=== PATIENT | male | born 1970 | race African-American/Black ===

== ENCOUNTER → 2016-11-05 | Outpatient (CLI) | payer OTHER ==
[2016-11-05 11:07] LABS: ABSOLUTE EOSINOPHILS # (AUTO) 0.1 10^3/uL (0.0-0.6); ABSOLUTE LYMPHOCYTES (AUTO) 2.3 10^3/uL (0.5-4.7); ABSOLUTE MONOCYTES (AUTO) 0.4 10^3/uL (0.1-1.4); ABSOLUTE NEUT (AUTO) 2.8 10^3/uL (1.7-8.2); BASOPHILS % (AUTO) 0.5 % (0-2); EOSINOPHILS % (AUTO) 1.2 % (0-6); HEMATOCRIT 43.7 % (37.9-51.0); HEMOGLOBIN 15.2 g/dL (13.5-17.0); HGB HCT DIFFERENCE 1.9; MEAN CORPUSCULAR HEMOGLOBIN 29.9 pg (27.0-33.4); MEAN CORPUSCULAR HGB CONC 34.7 g/dL (32.0-36.0); MEAN CORPUSCULAR VOLUME 86 fl (80-97); MONOCYTES % (AUTO) 6.5 % (3-13); RED BLOOD COUNT 5.08 10^6/uL (4.35-5.55); RED CELL DISTRIBUTION WIDTH 13.9 % (11.5-14.0); SEGMENTED NEUTROPHILS % (AUTO) 50.8 % (42-78); WHITE BLOOD COUNT 5.5 10^3/uL (4.0-10.5)
[2016-11-05 11:41] LABS: ALANINE AMINOTRANSFERASE 57 U/L (21-72); ALBUMIN 4.4 g/dL (3.5-5.0); ALKALINE PHOSPHATASE 85 U/L (38-126); ANION GAP 11 (5-19); ASPARTATE AMINO TRANSFERASE 31 U/L (17-59); BILIRUBIN,DIRECT 0.2 mg/dL (0.0-0.4); BLOOD UREA NITROGEN 14 mg/dL (7-20); CALCIUM 10.2 mg/dL (8.4-10.2); CARBON DIOXIDE 27 mmol/L (22-30); CHLORIDE 99 mmol/L (98-107); CHOLESTEROL 186.92 mg/dL (0-200); CREATININE RESULT 0.85 mg/dL (0.52-1.25); Direct HDL 31 mg/dL (>40); GLUCOSE 277 mg/dL (75-110); POTASSIUM 4.6 mmol/L (3.6-5.0); SODIUM 136.9 mmol/L (137-145); TOTAL PROTEIN 7.2 g/dL (6.3-8.2); TRIGLYCERIDES 315 mg/dL (<150)
[2016-11-05 11:52] LABS: DIRECT LDL 104 mg/dL (<100)
== END ==
LOC: OD 09:51
DX: Z00.00 Encounter for general adult medical examination without abnormal findings (principal); E11.9 Type 2 diabetes mellitus without complications
CPT/HCPCS: 36415; 80053; 80061; 82043; 83036; 84443; 85025

== ENCOUNTER 2017-02-23 21:48 | Emergency (ER) | payer MEDICAID, OTHER ==
[2017-02-24] MEDS ORDERED: IPRATROPIUM/ALBUTEROL 0.5-2.5 MG/3 ML AMPUL NEB ONE (00:07)
--- NOTE | 2017-02-24 00:09 | ER Document Report ---
ED General - General Chief Complaint: Cough Stated Complaint: COUGH Time Seen by Provider: 02/23/17 23:59 Notes: Patient is a 47-year-old male presents with complaint of difficulty breathing or coughing. He is a smoker. He does have a history of bronchitis. He is a diabetic and takes metformin and insulin. No fevers. No vomiting. Symptoms have been worsening over the course of a week. No chest pain. No abdominal pain. No other complaints at this time. TRAVEL OUTSIDE OF THE [place] IN LAST 30 DAYS: No - Related Data Allergies/Adverse Reactions: No Known Allergies Allergy (Verified 08/09/16 11:12) Past Medical History - Social History Smoking Status: Current Every Day Smoker Frequency of alcohol use: None Drug Abuse: None Family History: CAD, CVA, DM, Hyperlipidemia, Hypertension Patient has suicidal ideation: No Patient has homicidal ideation: No - Past Medical History Cardiac Medical History: Reports: Hx Hypertension Pulmonary Medical History: Reports: Hx Bronchitis Neurological Medical History: Reports: Hx Migraine Endocrine Medical History: Reports: Hx Diabetes Mellitus Type 2 Renal/ Medical History: Denies: Hx Peritoneal Dialysis Past Surgical History: Reports: Hx Orthopedic Surgery - 27 screws/plate in Rgt FA; Rgt Knee; Bone graft - Immunizations Hx Diphtheria, Pertussis, Tetanus Vaccination: Yes Review of Systems - Review of Systems Notes: My Normal Review Basic REVIEW OF SYSTEMS: CONSTITUTIONAL : Denies fever, chills, or sweats. Denies recent illness. EENT: Denies eye, ear, throat, or mouth pain or symptoms. Denies nasal or sinus congestion. CARDIOVASCULAR: Denies chest pain. RESPIRATORY: Recurrent cough. Wheezing GASTROINTESTINAL: Denies abdominal pain. Denies nausea, vomiting, or diarrhea. Denies constipation. Last BM: MUSCULOSKELETAL: Denies neck or back pain or joint pain or swelling. SKIN: Denies rash or skin lesions. NEUROLOGICAL: Denies altered mental status or loss of consciousness. Denies headache. Denies weakness or paralysis or loss of use of either side. Denies problems with gait or speech. Denies sensory or motor loss. ALL OTHER SYSTEMS REVIEWED AND NEGATIVE. Physical Exam - Vital signs Vitals: Temp Pulse Resp BP Pulse Ox 98.6 F 94 16 150/88 H 91 L 02/23/17 22:24 02/23/17 22:24 02/23/17 22:24 02/23/17 22:24 02/23/17 22:24 - Notes Notes: General Appearance: Well nourished, alert, cooperative, no acute distress, no obvious discomfort. Vitals: reviewed, See vital signs table. Head: no swelling or tenderness to the head Eyes: PERRL, EOMI, Conjuctiva clear Mouth: No decreasd moisture Throat: No tonsillar inflammation, No airway obstruction, No lymphadenopathy Neck: Supple, no neck tenderness, No thyromegaly Lungs: Wheezing. Some rhonchi. Fair air exchange Heart: Normal rate, Regular rythm, No murmur, no rub Abdomen: Normal BS, soft, No rigidity, No abdominal tenderness, No guarding, no rebound, no abdominal masses, no organomegaly Extremities: strength 5/5 in all extremities, good pulses in all extremities, no swelling or tenderness in the extremities, no edema. Skin: warm, dry, appropriate color, no rash Neuro: speech clear, oriented x 3, normal affect, responds appropriately to questions. Course - Re-evaluation Re-evalutation: 02/24/17 03:11 Nurse went did an Accu-Chek and the patient's blood sugar actually went up despite receiving 12 units of insulin. The nurse saw that the patient had been drinking natalia alla. The nose was nondiet. Patient is demanding another natalia alla but we are refusing to give it to him because obviously has free sugar in his blood sugars continue to increase. Patient now says that he forgot to take his Lantus last night. We will give him his 24 units of Lantus that he did not take last night. I will give him another 20 units of regular insulin. - Vital Signs Vital signs: Temp Pulse Resp BP Pulse Ox 97.8 F 88 20 151/84 H 98 02/24/17 05:30 02/24/17 05:30 02/24/17 05:30 02/24/17 05:30 02/24/17 05:30 - Laboratory Result Diagrams: 02/24/17 02:25 02/24/17 02:25 Laboratory results interpreted by me: 02/24/17 02/24/17 02/24/17 00:16 02:25 02:25 Seg Neutrophils % 40.3 L Lymphocytes % 48.5 H Sodium 135.0 L Glucose 425 H* POC Glucose 374 H 02/24/17 02/24/17 03:08 05:19 Seg Neutrophils % Lymphocytes % Sodium Glucose POC Glucose 417 H* 343 H - Transfer of Care Notes: 02/24/17 06:24 Patient is now feeling much improved. I talked to the length about smoking and also about control his blood sugars. His blood sugars now trending in the correct direction. Patient is understanding of this. He says he can control his blood sugar well at home with his insulin. 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 He does agree to try to quit back with smoking. I will not place him on prednisone at this time due to his poorly controlled blood sugars. he still has some rhonchorous breath sounds but his lung parrish are much improved as compared to when he first arrived. He has no tachypnea. He has no increased work of breathing. He did ambulate with the pulse ox on. His oxygenation remained 98% on room air and he says he feels well and wants to go home. I encouraged him return to the ER immediately if he has any worsening of his symptoms or feels unwell. Patient will be discharged home with albuterol inhaler. Patient agrees with plan and will be discharged home. Dictation of this chart was performed using voice recognition software; therefore, there may be some unintended grammatical errors. Discharge - Discharge Clinical Impression: Bronchitis Condition: Good Disposition: HOME, SELF-CARE Additional Instructions: BRONCHITIS: You have acute bronchitis. This disease is an infection or inflammation of the air passageways in your lungs. Symptoms usually include cough, low grade fever, shortness of breath, and wheezing. The cough usually persists for a couple of weeks. Most cases of bronchitis get better without antibiotics. We prescribe antibiotics when we believe bacteria are damaging your airways, or if there's high risk the bronchitis will worsen into pneumonia. Increase your fluid intake. A cool mist humidifier may make your lungs more comfortable. An expectorant (cough medicine that loosens phlegm) can help. If you smoke, STOP!!! Recovery from bronchitis can be somewhat slow, but you should see improvement within a day or two. Repeated episodes of bronchitis may result in lung damage -- for example, chronic bronchitis, recurrent pneumonias, or emphysema. Call the doctor if you develop increasing fever, shortness of breath, chest pain, bloody sputum, or otherwise worsen. If you have not improved at all after several days, contact the physician. BRONCHITIS WITH BRONCHOSPASM (WHEEZING): You have bronchitis with bronchospasm (wheezing). Sometimes people develop wheezing with a chest cold. This occurs either because of an underlying tendency toward asthma or because the virus itself irritates the bronchial tubes. This irritation causes cough, shortness of breath, and wheezing. Emergency treatment of bronchospasm may include adrenaline shots or bronchodilator aerosol. You may feel lightheaded and have a rapid pulse for an hour or two. Rest and get plenty of fluids. At home, we'll treat you with a bronchodilator inhaler. Corticosteroids may be required for some patients. Until you recover, avoid chemical fumes, dusts, pollens, and exercising in very cold or dry air. If you smoke, stop now! Most cases of bronchitis get better without antibiotics. We prescribe antibiotics when we believe bacteria are damaging your airways, or if there's high risk the bronchitis will worsen into pneumonia. Increase your fluid intake. A cool mist humidifier may make your lungs more comfortable. An expectorant (cough medicine that loosens phlegm) can help. Repeated episodes of bronchitis and bronchospasm may result in lung damage -- for example, chronic bronchitis, recurrent pneumonias, or emphysema. If you develop a fever, increased wheezing, chest pain, or severe shortness of breath, you should contact the doctor immediately. STEROID MEDICATION: You have been given an injection of or oral medicine of the cortisone/ steroid class. This medication is used to control inflammation or allergy. Jn t is usually only given for a short period of time, until the acute process subsides. There are usually no side effects from short-term use of cortisone-like medications. Some persons feel an increased sense of well-being and are not sleepy at bedtime. Long-term use of cortisone medications is best avoided, unless required for a severe condition. If your condition does not remit, or relapses after the course of corticosteroid medication, you should consult your physician. ANTIBIOTIC THERAPY: You have been given an antibiotic prescription. It's important that you take all the medication, unless instructed otherwise by your physician. Failure to complete the entire course can result in relapse of your condition. Common side effects of antibiotics include nausea, intestinal cramping, or diarrhea. Women may develop vaginal yeast infections, and babies can get yeast (thrush) in the mouth following the use of antibiotics. Contact your physician if you develop significant side effects from this medication. Allergy to this antibiotic can result in hives, wheezing, faintness, or itching. If symptoms of allergy occur, stop the medication and call your doctor. AZITHROMYCIN: Azithromycin (Zithromax) is a broad spectrum antibiotic in the same class as erythromycin. It can treat a variety of bacterial infections, but is most frequently used for respiratory infections. Azithromycin is extremely long-lasting. It accumulates in body tissues and continues to kill bacteria for many days. In order to improve absorption, Azithromycin should be taken at least one hour before or two hours after a meal. It does not have the same strong tendency to upset the stomach as erythromycin and is usually very well tolerated. Patients who have had a rash or other true allergic reactions to erythromycin should not take this medication. Call if you develop gastrointestinal distress, severe diarrhea, rash, hives, itching, or shortness of breath. SMOKING: If you smoke, you should stop smoking. The tar and chemicals in cigarette smoke are harmful. Smoking has been shown to cause: emphysema chronic bronchitis lung cancer mouth and throat cancer stomach and pancreas cancer premature aging defects In addition, smoking increases ear and lung infections in children of smokers. FOLLOW-UP CARE: If you have been referred to a physician for follow-up care, call the physician s office for an appointment as you were instructed or within the next two days. If you experience worsening or a significant change in your symptoms, notify the physician immediately or return to the Emergency Department at any time for re-evaluation. Please return to [facility] ER imemdiately if you have worsening difficulty breathing, fevers, or feel that you are worsening in anyway. please use the inhaler as 2 puffs every 4 hours as needed for coughing or wheezing. Prescriptions: Azithromycin 250 mg PO DAILY #4 tablet
[2017-02-24] MEDS ORDERED: INSULIN REG, HUMAN 100 UNIT/ML 3 ML VIAL (PYX) SUBCUT ONE ×2 (00:19→03:10)
[2017-02-24] MEDS ORDERED: ALBUTEROL SULFATE 0.083% NEB 2.5 MG/3 ML AMPUL NEB ONE (00:53)
--- NOTE | 2017-02-24 01:03 | RADIOLOGY REPORT (SQ) ---
EXAM DESCRIPTION: CHEST PA/LAT COMPLETED DATE/TIME: 02/24/2017 12:51 am REASON FOR STUDY: cough COMPARISON: 08.09.14 EXAM PARAMETERS: NUMBER OF VIEWS: two views TECHNIQUE: Digital Frontal and Lateral radiographic views of the chest acquired. RADIATION DOSE: NA LIMITATIONS: none FINDINGS: LUNGS AND PLEURA: No opacities, masses or pneumothorax. No pleural effusion. Pulmonary va scular congestion. Moderate lung volumes. MEDIASTINUM AND HILAR STRUCTURES: No masses or contour abnormalities. HEART AND VASCULAR STRUCTURES: Heart normal size. No evidence for failure. BONES: No acute findings. HARDWARE: None in the chest. OTHER: No other significant finding. IMPRESSION: Pulmonary vascular congestion. TECHNICAL DOCUMENTATION: JOB ID: [id number] [employer]- All Rights Reserved
[2017-02-24] MEDS: MAGNESIUM SULFATE/D5W 100 ML IV SCH ×2 (01:13→02:20)
[2017-02-24] MEDS ORDERED: METHYLPREDNISOLONE INJ 125 MG/2 ML SDV IV ONE (01:50)
[2017-02-24 02:47] LABS: ABSOLUTE EOSINOPHILS # (AUTO) 0.2 10^3/uL (0.0-0.6); ABSOLUTE LYMPHOCYTES (AUTO) 3.7 10^3/uL (0.5-4.7); ABSOLUTE MONOCYTES (AUTO) 0.6 10^3/uL (0.1-1.4); BASOPHILS % (AUTO) 0.4 % (0-2); EOSINOPHILS % (AUTO) 2.5 % (0-6); HEMATOCRIT 40.4 % (37.9-51.0); HEMOGLOBIN 13.5 g/dL (13.5-17.0); HGB HCT DIFFERENCE 0.1; LYMPHOCYTES % (AUTO) 48.5 % (13-45); MEAN CORPUSCULAR HEMOGLOBIN 29.6 pg (27.0-33.4); MEAN CORPUSCULAR HGB CONC 33.6 g/dL (32.0-36.0); MEAN CORPUSCULAR VOLUME 88 fl (80-97); MONOCYTES % (AUTO) 8.3 % (3-13); RED BLOOD COUNT 4.57 10^6/uL (4.35-5.55); RED CELL DISTRIBUTION WIDTH 13.7 % (11.5-14.0); SEGMENTED NEUTROPHILS % (AUTO) 40.3 % (42-78); WHITE BLOOD COUNT 7.6 10^3/uL (4.0-10.5)
[2017-02-24 03:01] LABS: ANION GAP 10 (5-19); BLOOD UREA NITROGEN 12 mg/dL (7-20); CALCIUM 8.8 mg/dL (8.4-10.2); CARBON DIOXIDE 25 mmol/L (22-30); CHLORIDE 100 mmol/L (98-107); CREATININE RESULT 0.92 mg/dL (0.52-1.25); POTASSIUM 3.8 mmol/L (3.6-5.0)
[2017-02-24] MEDS ORDERED: INSULIN GLARGINE,HUM.REC.ANLOG 1,000 UNIT/10 ML UNIT SUBCUT ONE (03:11)
[2017-02-24 03:14] LABS: GLUCOSE 425 mg/dL (75-110)
[2017-02-24] MEDS ORDERED: ALBUTEROL SULFATE HFA (90 MCG/PUFF) 8 GM MDI (1 MDI/ER DISP) IH ONE (05:29)
[2017-02-24] MEDS ORDERED: AZITHROMYCIN 250 MG TABLET PO ONE (05:29)
[2017-02-24 05:53] VITALS: BP 151/84
== END 2017-02-24 05:51 | disposition home or self-care (01) ==
LOC: ER 21:48
DX: J40 Bronchitis, not specified as acute or chronic (principal); R05 Cough; R06.2 Wheezing; I10 Essential (primary) hypertension; F17.200 Nicotine dependence, unspecified, uncomplicated; E11.9 Type 2 diabetes mellitus without complications; T38.3X6A Underdosing of insulin and oral hypoglycemic [antidiabetic] drugs, initial encounter; Z91.138 Patient's unintentional underdosing of medication regimen for other reason; Z91.14 Patient's other noncompliance with medication regimen; Z79.84 Long term (current) use of oral hypoglycemic drugs; Z79.4 Long term (current) use of insulin
CPT/HCPCS: 94640 ×2; 99283; 96375; 96365; 96366; 36415; 82962; 85025; 80048; 71020; J1815 ×2; J2930; J3475; J3490; J7620

== ENCOUNTER 2017-02-25 09:39 | Emergency (ER) | payer MEDICAID ==
--- NOTE | 2017-02-25 09:49 | ER Document Report ---
ED Medical Screen (RME) - General Stated Complaint: POSSIBLE STROKE Time Seen by Provider: 02/25/17 09:40 Mode of Arrival: Medic Information source: Patient, H Records Notes: 47-year-old diabetic male who was seen here 2 days prior for cough and hyperglycemia noncompliance presents by EMS with left-sided weakness I have greeted and performed a rapid initial assessment of this patient. A comprehensive ED assessment and evaluation of the patient, analysis of test results and completion of the medical decision making process will be conducted by additional ED providers. PHYSICAL EXAMINATION: GENERAL: Well-appearing, well-nourished and in no acute distress. HEAD: Atraumatic, normocephalic. EYES: Pupils equal round extraocular movements intact, conjunctiva are normal. SKIN: Warm, Dry, normal turgor, no rashes or lesions noted. TRAVEL OUTSIDE OF THE [place] IN LAST 30 DAYS: No - Related Data Allergies/Adverse Reactions: No Known Allergies Allergy (Verified 08/09/16 11:12) Past Medical History - Past Medical History Cardiac Medical History: Reports: Hx Hypertension Pulmonary Medical History: Reports: Hx Bronchitis Neurological Medical History: Reports: Hx Migraine Endocrine Medical History: Reports: Hx Diabetes Mellitus Type 2 Renal/ Medical History: Denies: Hx Peritoneal Dialysis Past Surgical History: Reports: Hx Orthopedic Surgery - 27 screws/plate in Rgt FA; Rgt Knee; Bone graft - Immunizations Hx Diphtheria, Pertussis, Tetanus Vaccination: Yes
--- NOTE | 2017-02-25 09:58 | ER Document Report ---
ED General - General Stated Complaint: POSSIBLE STROKE Time Seen by Provider: 02/25/17 09:40 Mode of Arrival: Medic Information source: Patient TRAVEL OUTSIDE OF THE [place] IN LAST 30 DAYS: No - HPI Notes: 47-year-old diabetic male who was seen here 2 days prior for cough and hyperglycemia noncompliance presents by EMS with left-sided weakness Left arm and leg onset at 715 this morning with associated numbness from the face to arm and leg. Patient is insulin-dependent. Patient reports no headache. The patient had a blood sugar in route by EMS of 317. Patient has had no recent surgeries. No head trauma. No history of bleeding ulcers or other sources of bleeding. The patient had normal platelet count and normal BUN/creatinine on lab work drawn 2 days ago when he came in for hyperglycemia. - Related Data Allergies/Adverse Reactions: No Known Allergies Allergy (Verified 08/09/16 11:12) Past Medical History - General Information source: Patient, [facility] Records - Social History Smoking Status: Current Every Day Smoker Frequency of alcohol use: None Drug Abuse: None Lives with: Family Family History: CAD, CVA, DM, Hyperlipidemia, Hypertension - Past Medical History Cardiac Medical History: Reports: Hx Hypertension Pulmonary Medical History: Reports: Hx Bronchitis Neurological Medical History: Reports: Hx Migraine Endocrine Medical History: Reports: Hx Diabetes Mellitus Type 2 Renal/ Medical History: Denies: Hx Peritoneal Dialysis Past Surgical History: Reports: Hx Orthopedic Surgery - 27 screws/plate in Rgt FA; Rgt Knee; Bone graft - Immunizations Hx Diphtheria, Pertussis, Tetanus Vaccination: Yes Review of Systems - Review of Systems Notes: REVIEW OF SYSTEMS: CONSTITUTIONAL : Denies fever, chills, or sweats. Denies recent illness. EENT: Denies eye, ear, throat, or mouth pain or symptoms. Denies nasal or sinus congestion or discharge. Denies throat, tongue, or mouth swelling or difficulty swallowing. CARDIOVASCULAR: Denies chest pain. Denies palpitations or racing or irregular heart beat. Denies ankle edema. RESPIRATORY: Patient reports resolving cough and congestion. Denies shortness of breath, difficulty breathing, or wheezing. GASTROINTESTINAL: Denies abdominal pain or distention. Denies nausea, vomiting , or diarrhea. Denies blood in vomitus, stools, or per rectum. Denies black, tarry stools. Denies constipation. GENITOURINARY: Denies difficulty urinating, painful urination, burning, frequency, blood in urine, or discharge. MUSCULOSKELETAL: Denies back or neck pain or stiffness. Denies joint pain or swelling. SKIN: Denies rash, lesions or sores. HEMATOLOGIC : Denies easy bruising or bleeding. LYMPHATIC: Denies swollen, enlarged glands. NEUROLOGICAL: Denies confusion or altered mental status. Denies passing out or loss of consciousness. Denies dizziness or lightheadedness. Denies headache. Denies seizures. Patient reports being unable to walk since 715 this morning with left-sided weakness and numbness. No aphasia. PSYCHIATRIC: Denies anxiety or stress. Denies depression, suicidal ideation, or homicidal ideation. ALL OTHER SYSTEMS REVIEWED AND NEGATIVE. Dictation was performed using [employer] voice recognition software Physical Exam - Notes Notes: PHYSICAL EXAMINATION: GENERAL: Well-appearing, well-nourished and in no acute distress. HEAD: Atraumatic, normocephalic. EYES: Pupils equal round and reactive to light, extraocular movements intact, sclera anicteric, conjunctiva are normal. ENT: Nares patent, oropharynx clear without exudates. Moist mucous membranes. NECK: Normal range of motion, supple without lymphadenopathy. No obvious carotid bruits. LUNGS: Breath sounds clear to auscultation bilaterally and equal. No rales or rhonchi. Scant expiratory wheeze noted. No retraction. HEART: Regular rate and rhythm without murmurs ABDOMEN: Soft, nontender, nondistended abdomen. No guarding, no rebound. No masses appreciated. Musculoskeletal: Normal range of motion, no pitting or edema. No cyanosis. NEUROLOGICAL: No facial paresis, but patient does have a subjective numbness to the face as well as to the left arm and left leg. Patient has motor strength 4/ 5 left upper extremity is able to hold it up against gravity but cannot consistently keep it up against gravity. He has diminished hand engineering professor and finger abduction on the left. Patient is flaccid to the left lower extremity with a very mild hyperreflexia noted. Normal reflexes noted otherwise. Patient is unable to pull the leg up against gravity or move his toes on the left at all. Patient is otherwise alert and oriented 3 with normal speech. No apraxia. No ataxia with the right upper extremity. NIH stroke scale of 9 noted. PSYCH: Normal mood, normal affect. SKIN: Warm, Dry, normal turgor, no rashes or lesions noted. Course - Re-evaluation Re-evalutation: 02/25/17 10:57 Discussion was undertaken with radiology and CT scan was interpreted as negative. Patient was within the 4.5 hour window for giving thrombolytic therapy based upon onset of symptoms and based upon acuity. Blood pressure 148/79. There were no contraindications noted to thrombolytic therapy. Discussion was immediately undertaken with [facility] Dr. Krishna who agreed that the patient was a thrombolytic candidate based upon symptoms, acuity , and timeframe. Dr. Krishna accepted the patient in transfer. [facility] was dispatched for aeromedical transfer. Discussion was undertaken at length with the patient and his related to the risks alternatives and benefits of thrombolytic therapy including a 6% risk of intracranial hemorrhage. They agreed to proceed with thrombolytic therapy and a consent form was signed by the patient's at the bedside of the patient. Alteplase was given IV per protocol. Vital signs remained stable thereafter. Order for CTA of the head and neck was made, but the helicopter arrived prior to CTA being performed. CTA will need to be performed as soon as the patient arrives at [facility]. DuoNeb given for mild wheezing. Patient has a history of inhaler use and COPD. 02/25/17 11:01 - Laboratory Result Diagrams: 02/25/17 10:11 02/25/17 10:11 Laboratory results interpreted by me: 02/25/17 02/25/17 10:11 10:11 WBC 14.9 H Absolute Neutrophils 10.4 H Glucose 291 H Creatine Kinase 173 H Critical Care Note - Critical Care Note Total time excluding time spent on procedures (mins): 51 Discharge - Discharge Clinical Impression: Left hemiparesis CVA (cerebral vascular accident) Qualifiers: CVA mechanism: unspecified Qualified Code(s): I63.9 - Cerebral infarction, unspecified Condition: Stable Disposition: [facility]
--- NOTE | 2017-02-25 10:14 | RADIOLOGY REPORT (SQ) ---
EXAM DESCRIPTION: CT HEAD WITHOUT COMPLETED DATE/TIME: 02/25/2017 9:49 am REASON FOR STUDY: bed 9 stroke alert COMPARISON: 03/15/2015 and 06/29/2011. TECHNIQUE: Axial images acquired through the brain without intravenous contrast. Images reviewed wi th bone, brain and subdural windows. Images stored on PACS. All CT scanners at this facility use dose modulation, iterative reconstruction, and/or weight based d osing when appropriate to reduce radiation dose to as low as reasonably achievable (ALARA). [facility]: Dose Right [facility]: CareDose [facility]: Dose Right [facility]: Teradose 4D [facility]: Smart [email or web address] RADIATION DOSE: Up-to-date CT equipment and radiation dose reduction techniques were employed. CTDIv ol: 64.6 mGy. DLP: 1163 mGy-cm. mGy. LIMITATIONS: None. FINDINGS: VENTRICLES: Normal size and contour. CEREBRUM: No masses. No hemorrhage. No midline shift. Normal jenkins/white matter differentiation. N o evidence for acute infarction. CEREBELLUM: No masses. No hemorrhage. No alteration of density. No evidence for acute infarction. EXTRAAXIAL SPACES: No fluid collections. No masses. ORBITS AND GLOBE: No intra- or extraconal masses. Normal contour of globe without masses. CALVARIUM: No fracture. There is chronic mild deformity of the right temporal bone, possibly an old fracture. PARANASAL SINUSES: No fluid or mucosal thickening. SOFT TISSUES: No mass or hematoma. OTHER: No other significant finding. IMPRESSION: NORMAL BRAIN CT WITHOUT CONTRAST. COMMENT: Pertinent positive or negative findings of the imaging study reported as a CRITICAL EXAM sarah JOHNSON at10:08 on 02/25/2017. Category of Critical Exam: Stroke protocol. TECHNICAL DOCUMENTATION: JOB ID: [id number] Quality ID # [id number]: Final reports with documentation of one or more dose reduction techniques (e.g., Au tomated exposure control, adjustment of the mA and/or kV according to patient size, use of iterative reconstruction technique) 2010 [employer]- All Rights Reserved
--- NOTE | 2017-02-25 10:16 | RADIOLOGY REPORT (SQ) ---
EXAM DESCRIPTION: CHEST SINGLE VIEW COMPLETED DATE/TIME: 02/25/2017 9:56 am REASON FOR STUDY: bed 9 stroke alert COMPARISON: 02/24/2017. EXAM PARAMETERS: NUMBER OF VIEWS: One view. TECHNIQUE: Single frontal radiographic view of the chest acquired. RADIATION DOSE: NA LIMITATIONS: None. FINDINGS: LUNGS AND PLEURA: No opacities, masses or pneumothorax. No pleural effusion. MEDIASTINUM AND HILAR STRUCTURES: No masses. Contour normal. HEART AND VASCULAR STRUCTURES: Heart normal in size. Normal vasculature. BONES: No acute findings. HARDWARE: None in the chest. OTHER: No other significant finding. IMPRESSION: NO ACUTE RADIOGRAPHIC FINDING IN THE CHEST. TECHNICAL DOCUMENTATION: JOB ID: [id number]
[2017-02-25 10:21] LABS: ABSOLUTE EOSINOPHILS # (AUTO) 0.1 10^3/uL (0.0-0.6); ABSOLUTE LYMPHOCYTES (AUTO) 3.7 10^3/uL (0.5-4.7); ABSOLUTE MONOCYTES (AUTO) 0.8 10^3/uL (0.1-1.4); ABSOLUTE NEUT (AUTO) 10.4 10^3/uL (1.7-8.2); BASOPHILS % (AUTO) 0.2 % (0-2); EOSINOPHILS % (AUTO) 0.6 % (0-6); HEMATOCRIT 42.4 % (37.9-51.0); HGB HCT DIFFERENCE -0.4; LYMPHOCYTES % (AUTO) 24.5 % (13-45); MEAN CORPUSCULAR HEMOGLOBIN 29.1 pg (27.0-33.4); MEAN CORPUSCULAR HGB CONC 33.1 g/dL (32.0-36.0); MEAN CORPUSCULAR VOLUME 88 fl (80-97); MONOCYTES % (AUTO) 5.1 % (3-13); RED BLOOD COUNT 4.82 10^6/uL (4.35-5.55); RED CELL DISTRIBUTION WIDTH 13.8 % (11.5-14.0); SEGMENTED NEUTROPHILS % (AUTO) 69.6 % (42-78); WHITE BLOOD COUNT 14.9 10^3/uL (4.0-10.5)
[2017-02-25] MEDS ORDERED: ALTEPLASE INJ 100 MG VIAL ONE (10:23)
[2017-02-25 10:29] LABS: PROTHROMBIN TIME 11.8 SEC (11.4-15.4)
[2017-02-25 10:30] LABS: PARTIAL THROMBOPLASTIN TIME 23.8 SEC (23.5-35.8)
[2017-02-25] MEDS ORDERED: IPRATROPIUM/ALBUTEROL 0.5-2.5 MG/3 ML AMPUL NEB ONE ×2 (10:42→10:46)
[2017-02-25 10:43] LABS: ALANINE AMINOTRANSFERASE 34 U/L (21-72); ALBUMIN 4.1 g/dL (3.5-5.0); ALKALINE PHOSPHATASE 98 U/L (38-126); ANION GAP 13 (5-19); ASPARTATE AMINO TRANSFERASE 19 U/L (17-59); BILIRUBIN,DIRECT 0.3 mg/dL (0.0-0.4); BILIRUBIN,TOTAL 0.6 mg/dL (0.2-1.3); BLOOD UREA NITROGEN 15 mg/dL (7-20); CALCIUM 9.9 mg/dL (8.4-10.2); CARBON DIOXIDE 24 mmol/L (22-30); CHLORIDE 100 mmol/L (98-107); CREATINE KINASE 173 U/L (55-170); CREATININE RESULT 0.99 mg/dL (0.52-1.25); GLUCOSE 291 mg/dL (75-110); POTASSIUM 4.1 mmol/L (3.6-5.0); SODIUM 137.1 mmol/L (137-145); TOTAL PROTEIN 7.1 g/dL (6.3-8.2)
[2017-02-25 10:54] LABS: CREATINE KINASE MB 0.65 ng/mL (<4.55)
[2017-02-25 10:55] LABS: TROPONIN I < 0.012 ng/mL
[2017-02-25 11:21] VITALS: BP 148/84
--- NOTE | 2017-02-25 13:06 | EKG REPORT ---
SEVERITY:- NORMAL ECG - SINUS RHYTHM ST ELEV, PROBABLE NORMAL EARLY REPOL PATTERN : Confirmed by: Kris Jeff MD 25-Feb-2017 13:05:48
== END 2017-02-25 11:59 | disposition short-term general hospital (02) ==
LOC: ER 09:39
DX: I69.354 Hemiplegia and hemiparesis following cerebral infarction affecting left non-dominant side (principal); I63.9 Cerebral infarction, unspecified; R05 Cough; R73.9 Hyperglycemia, unspecified; R53.1 Weakness; F17.200 Nicotine dependence, unspecified, uncomplicated
CPT/HCPCS: 36415; 70450; 71010; 80053; 82550; 82553; 84484; 85025; 85610; 85730; 93005; 93010; 99291

== ENCOUNTER 2017-07-18 08:14 | Emergency (ER) | payer MEDICAID ==
[2017-07-18] MEDS ORDERED: IPRATROPIUM/ALBUTEROL 0.5-2.5 MG/3 ML AMPUL NEB ONE (08:50)
[2017-07-18] MEDS ORDERED: GUAIFENESIN/D-METHORPHAN (200-20 MG) SYRUP 10 ML PO ONE (08:51)
--- NOTE | 2017-07-18 08:51 | ER Document Report ---
ED Respiratory Problem - General Chief Complaint: Shortness Of Breath Stated Complaint: SHORTNESS OF BREATH Time Seen by Provider: 07/18/17 08:30 Mode of Arrival: Ambulatory Information source: Patient Notes: Patient is a 47-year-old asthmatic who presents to the ER today for 1 week of cough, shortness of breath, wheezing, "Hot flashes" chills. Patient admits that his cough is productive of thick yellow sputum. He has not tried anything [id number]. He denies chest pain. TRAVEL OUTSIDE OF THE [place] IN LAST 30 DAYS: No - Related Data Allergies/Adverse Reactions: No Known Allergies Allergy (Verified 07/18/17 08:16) Past Medical History - General Information source: Patient - Social History Smoking Status: Former Smoker Family History: CAD, CVA, DM, Hyperlipidemia, Hypertension - Past Medical History Cardiac Medical History: Reports: Hx Hypertension Pulmonary Medical History: Reports: Hx Bronchitis Neurological Medical History: Reports: Hx Migraine Endocrine Medical History: Reports: Hx Diabetes Mellitus Type 2 Renal/ Medical History: Denies: Hx Peritoneal Dialysis Past Surgical History: Reports: Hx Orthopedic Surgery - 27 screws/plate in Rgt FA; Rgt Knee; Bone graft - Immunizations Hx Diphtheria, Pertussis, Tetanus Vaccination: Yes Review of Systems - Review of Systems Constitutional: See HPI EENT: See HPI Cardiovascular: No symptoms reported Respiratory: See HPI Gastrointestinal: No symptoms reported Genitourinary: No symptoms reported Male Genitourinary: No symptoms reported Musculoskeletal: No symptoms reported Skin: No symptoms reported Hematologic/Lymphatic: No symptoms reported Neurological/Psychological: No symptoms reported Physical Exam - Vital signs Vitals: Temp Pulse Resp BP Pulse Ox 97.8 F 91 16 161/89 H 95 07/18/17 08:18 07/18/17 08:18 07/18/17 08:18 07/18/17 08:18 07/18/17 08:18 - Notes Notes: PHYSICAL EXAMINATION: GENERAL: Mildly ill-appearing, but in no acute distress. HEAD: Atraumatic, normocephalic. EYES: Pupils equal round and reactive to light, extraocular movements intact, sclera anicteric, conjunctiva are normal. ENT: ear canals without erythema or foreign body, TMs pearly ignacio with good bony landmarks, nares with mucoid discharge, oropharynx clear without exudates. Moist mucous membranes. airway patent NECK: Normal range of motion, supple without lymphadenopathy LUNGS: cough, otherwise,CTAB and equal. No wheezes rales or rhonchi. HEART: Regular rate and rhythm without murmurs ABDOMEN: Soft, no tenderness. No guarding, no rebound BACK: no vertebral tenderness, normal ROM GI/: no CVA tenderness EXTREMITIES: Normal range of motion, no pitting edema. No cyanosis. NEUROLOGICAL: Cranial nerves grossly intact. Normal sensory/motor exams. PSYCH: Normal mood, normal affect. SKIN: Warm, Dry, normal turgor, no rashes or lesions noted Course - Re-evaluation Re-evalutation: 07/18/17 11:45 chest x-ray reports a right lower lobe pneumonia. Patient placed on antibiotic , cough medication and given refills on his albuterol. - Vital Signs Vital signs: Temp Pulse Resp BP Pulse Ox 98.7 F 96 20 140/98 H 96 07/18/17 10:03 07/18/17 10:03 07/18/17 10:03 07/18/17 10:03 07/18/17 10:03 - Laboratory Laboratory results interpreted by me: 07/18/17 09:47 POC Glucose 123 H Discharge - Discharge Clinical Impression: Pneumonia Qualifiers: Pneumonia type: due to unspecified organism Laterality: right Lung location: lower lobe of lung Qualified Code(s): J18.1 - Lobar pneumonia, unspecified organism Condition: Stable Disposition: HOME, SELF-CARE Instructions: Pneumonia ([facility]) Additional Instructions: Return immediately for any new or worsening symptoms. Follow up with primary care provider, call tomorrow to make followup appointment. Prescriptions: Hydrocodone Bit/Homatropine [Hycodan Syrup 5-1.5 mg/5 ml Ud Cup] 5 ml PO Q4HP PRN #120 ml PRN Reason: Albuterol Sulfate [Albuterol Sulfate 2.5mg/3 mL] 2.5 mg IH Q4 PRN #75 ml PRN Reason: Amox Tr/Potassium Clavulanate [Augmentin 875-125 Tablet] 1 tab PO BID 10 Days tablet Forms: Return to Work
--- NOTE | 2017-07-18 09:32 | RADIOLOGY REPORT (SQ) ---
EXAM DESCRIPTION: CHEST PA/LAT COMPLETED DATE/TIME: 07/18/2017 9:10 am REASON FOR STUDY: sob COMPARISON: February 2017 EXAM PARAMETERS: NUMBER OF VIEWS: two views TECHNIQUE: Digital Frontal and Lateral radiographic views of the chest acquired. RADIATION DOSE: NA LIMITATIONS: none FINDINGS: LUNGS AND PLEURA: There is ill-defined increased density in the right lung base which coul d represent a developing infiltrate or atelectatic changes. Remaining lung parrish are clear. No ple ural effusions are identified. No pneumothorax is seen. MEDIASTINUM AND HILAR STRUCTURES: No masses or contour abnormalities. HEART AND VASCULAR STRUCTURES: Heart normal size. No evidence for failure. BONES: No acute findings. HARDWARE: None in the chest. OTHER: No other significant finding. IMPRESSION: Ill-defined increased density in the right lung base which could represent a developing infiltrate or atelectatic changes. Remaining lung parrish are clear TECHNICAL DOCUMENTATION: JOB ID: [id number] [employer]- All Rights Reserved
[2017-07-18 10:04] VITALS: BP 140/98
== END 2017-07-18 10:02 | disposition home or self-care (01) ==
LOC: ER 08:14
DX: J18.1 Lobar pneumonia, unspecified organism (principal); R06.02 Shortness of breath; R05 Cough; R06.2 Wheezing; Z87.891 Personal history of nicotine dependence
CPT/HCPCS: 94640; 99285; 82962; 87804; 71020; J3490; J7620

== ENCOUNTER 2017-07-25 17:08 | Inpatient (IN) | payer MEDICAID ==
--- NOTE | 2017-07-25 17:31 | ER Document Report ---
ED Medical Screen (RME) - General Chief Complaint: Shortness Of Breath Stated Complaint: SHORTNESS OF BREATH Time Seen by Provider: 07/25/17 17:29 Notes: The patient is a 47-year-old male who presents with increasing shortness of breath, cough, fevers and chills over the past few days. He was diagnosed with a right lower lobe pneumonia 1 week ago and has been taking his Augmentin as prescribed. He is not feeling much better and is having worsening dyspnea on exertion. PE: Crackles in RLL. Labored breathing after walking. I have greeted and performed a rapid initial assessment of this patient. A comprehensive ED assessment and evaluation of the patient, analysis of test results and completion of the medical decision making process will be conducted by additional ED providers. TRAVEL OUTSIDE OF THE [place] IN LAST 30 DAYS: No - Related Data Allergies/Adverse Reactions: No Known Allergies Allergy (Verified 07/25/17 17:12) Past Medical History - Past Medical History Cardiac Medical History: Reports: Hx Hypertension Pulmonary Medical History: Reports: Hx Bronchitis Neurological Medical History: Reports: Hx Migraine Endocrine Medical History: Reports: Hx Diabetes Mellitus Type 2 Renal/ Medical History: Denies: Hx Peritoneal Dialysis Past Surgical History: Reports: Hx Orthopedic Surgery - 27 screws/plate in Rgt FA; Rgt Knee; Bone graft - Immunizations Hx Diphtheria, Pertussis, Tetanus Vaccination: Yes Physical Exam - Vital signs Vitals: Temp Pulse Resp BP Pulse Ox 98.3 F 94 24 H 147/95 H 92 07/25/17 17:19 07/25/17 17:19 07/25/17 17:19 07/25/17 17:19 07/25/17 17:19 Course - Vital Signs Vital signs: Temp Pulse Resp BP Pulse Ox 98.3 F 94 24 H 147/95 H 92 07/25/17 17:19 07/25/17 17:19 07/25/17 17:19 07/25/17 17:19 07/25/17 17:19
--- NOTE | 2017-07-25 18:07 | RADIOLOGY REPORT (SQ) ---
EXAM DESCRIPTION: CHEST PA/LAT COMPLETED DATE/TIME: 07/25/2017 5:59 pm REASON FOR STUDY: SOB COMPARISON: 07/18/2017 EXAM PARAMETERS: NUMBER OF VIEWS: two views TECHNIQUE: Digital Frontal and Lateral radiographic views of the chest acquired. RADIATION DOSE: NA LIMITATIONS: none FINDINGS: LUNGS AND PLEURA: Patchy opacification is present in each mid and lower lung field. Possi ble pulmonary edema. MEDIASTINUM AND HILAR STRUCTURES: No masses or contour abnormalities. HEART AND VASCULAR STRUCTURES: Borderline cardiomegaly. BONES: No acute findings. HARDWARE: None in the chest. OTHER: No other significant finding. IMPRESSION: Borderline cardiomegaly with possible pulmonary edema. Multicentric pneumonia cannot be excluded. TECHNICAL DOCUMENTATION: JOB ID: [id number] [employer]- All Rights Reserved
--- NOTE | 2017-07-25 18:20 | ER Document Report ---
ED General - General Chief Complaint: Shortness Of Breath Stated Complaint: SHORTNESS OF BREATH Time Seen by Provider: 07/25/17 17:29 Mode of Arrival: Ambulatory Information source: Patient Notes: This is a 47-year-old man with a history of hypertension, diabetes, bronchitis, asthma, CVA (residual left lower extremity weakness). The patient presented on July 18 with shortness of breath and was treated for pneumonia. He presents to the emergency room with first worsening shortness of breath over the past 2 days associated with cough and chills. TRAVEL OUTSIDE OF THE [place] IN LAST 30 DAYS: No - HPI Onset: Last week Onset/Duration: Gradual Quality of pain: No pain Severity: None Pain Level: Denies Associated symptoms: Nonproductive cough, Shortness of breath. denies: Chest pain, Fever Exacerbated by: Movement Relieved by: Remaining still Similar symptoms previously: Yes Recently seen / treated by doctor: Yes - Related Data Allergies/Adverse Reactions: No Known Allergies Allergy (Verified 07/25/17 17:12) Home Medications: Current Home Medications Acyclovir [Zovirax 200 mg Capsule] 1 tab PO BID 07/25/17 [History] Albuterol Sulfate [Ventolin 0.042% Neb 1.25 mg/3 mL Ampul] 1 dose IN Q4 [History] Atorvastatin Calcium 1 tab PO DAILY 07/25/17 [History] Butalb/Acetaminophen/Caffeine [Slbrwd-Qwwswayx-Uxlt 50-300-40] 1 tab PO TID 03/04 [History] Gabapentin 1 tab PO BID 07/25/17 [History] Meloxicam 1 tab PO BID 07/25/17 [History] Metformin HCl 1 tab PO BID 07/25/17 [History] Pregabalin [Lyrica 50 mg Capsule] 1 tab PO TID 07/25/17 [History] Propranolol HCl [Inderal 20 mg Tablet] 1 tab PO TID 07/25/17 [History] Trazodone HCl 1 tab PO DAILY 07/25/17 [History] Past Medical History - General Information source: Patient - Social History Smoking Status: Current Every Day Smoker Cigarette use (# per day): Yes - Half pack per day Chew tobacco use (# tins/day): No Frequency of alcohol use: None Drug Abuse: None Lives with: Spouse/Significant other Family History: CAD, CVA, DM, Hyperlipidemia, Hypertension Patient has suicidal ideation: No Patient has homicidal ideation: No - Past Medical History Cardiac Medical History: Reports: Hx Hypertension Pulmonary Medical History: Reports: Hx Bronchitis Neurological Medical History: Reports: Hx Migraine Endocrine Medical History: Reports: Hx Diabetes Mellitus Type 2 Renal/ Medical History: Denies: Hx Peritoneal Dialysis Past Surgical History: Reports: Hx Orthopedic Surgery - 27 screws/plate in Rgt FA; Rgt Knee; Bone graft - Immunizations Hx Diphtheria, Pertussis, Tetanus Vaccination: Yes Review of Systems - Review of Systems Constitutional: denies: Chills, Fever EENT: No symptoms reported Cardiovascular: See HPI Respiratory: See HPI Gastrointestinal: No symptoms reported Genitourinary: No symptoms reported Male Genitourinary: No symptoms reported Musculoskeletal: No symptoms reported Skin: No symptoms reported Hematologic/Lymphatic: No symptoms reported Neurological/Psychological: No symptoms reported Physical Exam - Vital signs Vitals: Temp Pulse Resp BP Pulse Ox 98.3 F 94 24 H 147/95 H 92 07/25/17 17:19 07/25/17 17:19 07/25/17 17:19 07/25/17 17:19 07/25/17 17:19 Notes: Physical exam: GENERAL: 47-year-old man, alert and oriented 3, patient is in respiratory distress, on room air O2 sat 90% HEAD: Atraumatic, normocephalic. EYES: Pupils equal round and reactive to light, extraocular movements intact, sclera anicteric, conjunctiva are normal. ENT: TMs normal, nares patent, oropharynx clear without exudates. Moist mucous membranes. NECK: Normal range of motion, supple without obvious mass or JVD. LUNGS: Scattered wheezes HEART: Regular rate and rhythm without murmurs, rubs or gallops. ABDOMEN: Soft, normoactive bowel sounds. No tenderness to palpation. No guarding, no rebound. No masses appreciated. EXTREMITIES: Normal range of motion, no pitting or edema. No clubbing or cyanosis. NEUROLOGICAL: Cranial nerves II through XII grossly intact. Normal speech, moving all extremities. PSYCH: Normal mood, normal affect. SKIN: Warm, Dry, normal turgor, no rashes or lesions noted. Course - Re-evaluation Re-evalutation: 07/25/17 22:22 Note: The CT of the chest shows pleural effusions and bilateral infiltrates with a differential of heart failure versus multilobar pneumonia. We are treating the patient for both. He is receiving IV diuresis as well as IV antibiotics broad-spectrum. He is getting nebulizers. Patient has refused some of his care and threatened to leave against advice. I did speak with him and he is willing to stay in the hospital. Currently, he is supplemental oxygen is between 3 and 4 L humidified and his O2 sat is between 91 and 94%. I have expressed to him that we are very concerned about his respiratory status. - Vital Signs Vital signs: Temp Pulse Resp BP Pulse Ox 98.3 F 94 21 H 130/60 H 91 L 07/25/17 17:19 07/25/17 17:19 07/25/17 21:01 07/25/17 21:01 07/25/17 21:01 - Laboratory Result Diagrams: 07/25/17 19:21 07/25/17 19:21 Laboratory results interpreted by me: 07/25/17 07/25/17 07/25/17 19:21 19:21 19:21 RDW 14.4 H Lactic Acid Direct Bilirubin 0.5 H Creatine Kinase 177 H NT-Pro-B Natriuret Pep 2830 H TSH 07/25/17 07/25/17 19:21 19:21 RDW Lactic Acid 2.2 H Direct Bilirubin Creatine Kinase NT-Pro-B Natriuret Pep TSH 0.45 L - Diagnostic Test Radiology reviewed: Image reviewed, Reports reviewed - Chest x-ray shows bilateral infiltrates suggestive of multilobar pneumonia or pulmonary edema - EKG Interpretation by Me Rate: Normal Rhythm: NSR - EKG shows normal sinus rhythm with no acute ST-T wave change, some baseline artifact. Critical Care Note - Critical Care Note Total time excluding time spent on procedures (mins): 70 Discharge - Discharge Clinical Impression: Dyspnea, Pneumonia, Pulmonary edema Condition: Serious Disposition: ADMITTED INPATIENT Admitting Provider: Hospitalist - Dr. Chaves Unit Admitted: [facility]
[2017-07-25] MEDS ORDERED: IPRATROPIUM/ALBUTEROL 0.5-2.5 MG/3 ML AMPUL NEB ONE (18:21)
[2017-07-25] MEDS ORDERED: CEFTRIAXONE 1 GM/D5W RTU 1 GM/50 ML RTUPB IV ONE (18:21)
[2017-07-25] MEDS ORDERED: CEFEPIME 2 GM/D5W RTU 2 GM/50 ML RTUPB IV ONE (18:24)
[2017-07-25] MEDS ORDERED: AZITHROMYCIN INJ 500 MG VIAL IV ONE (18:24)
[2017-07-25] MEDS ORDERED: FUROSEMIDE INJ/PF 40 MG/4 ML SDV IV ONE (19:37)
[2017-07-25] MEDS ORDERED: FUROSEMIDE INJ/PF 40 MG/4 ML SDV ONE (19:38)
[2017-07-25 19:47] LABS: VENOUS BLOOD BASE EXCESS -1.5 mmol/L; VENOUS BLOOD PCO2 43.1 mmHg (35-63); VENOUS BLOOD PH 7.36 (7.30-7.42)
[2017-07-25 19:48] LABS: ABSOLUTE BASOPHILS # (AUTO) 0.1 10^3/uL (0.0-0.2); ABSOLUTE EOSINOPHILS # (AUTO) 0.1 10^3/uL (0.0-0.6); ABSOLUTE LYMPHOCYTES (AUTO) 2.1 10^3/uL (0.5-4.7); ABSOLUTE MONOCYTES (AUTO) 0.5 10^3/uL (0.1-1.4); ABSOLUTE NEUT (AUTO) 7.1 10^3/uL (1.7-8.2); BASOPHILS % (AUTO) 0.8 % (0-2); EOSINOPHILS % (AUTO) 0.8 % (0-6); HEMATOCRIT 40.6 % (37.9-51.0); HEMOGLOBIN 13.8 g/dL (13.5-17.0); HGB HCT DIFFERENCE 0.8; LYMPHOCYTES % (AUTO) 21.4 % (13-45); MEAN CORPUSCULAR HEMOGLOBIN 29.7 pg (27.0-33.4); MEAN CORPUSCULAR HGB CONC 34.1 g/dL (32.0-36.0); MEAN CORPUSCULAR VOLUME 87 fl (80-97); MONOCYTES % (AUTO) 5.1 % (3-13); RED BLOOD COUNT 4.65 10^6/uL (4.35-5.55); RED CELL DISTRIBUTION WIDTH 14.4 % (11.5-14.0); SEGMENTED NEUTROPHILS % (AUTO) 71.9 % (42-78); WHITE BLOOD COUNT 9.8 10^3/uL (4.0-10.5)
[2017-07-25 20:04] LABS: ALANINE AMINOTRANSFERASE 43 U/L (21-72); ALBUMIN 3.7 g/dL (3.5-5.0); ALKALINE PHOSPHATASE 74 U/L (38-126); ANION GAP 9 (5-19); ASPARTATE AMINO TRANSFERASE 23 U/L (17-59); BILIRUBIN,DIRECT 0.5 mg/dL (0.0-0.4); BILIRUBIN,TOTAL 0.7 mg/dL (0.2-1.3); BLOOD UREA NITROGEN 13 mg/dL (7-20); CALCIUM 8.8 mg/dL (8.4-10.2); CARBON DIOXIDE 26 mmol/L (22-30); CHLORIDE 106 mmol/L (98-107); CREATINE KINASE 177 U/L (55-170); CREATININE RESULT 0.99 mg/dL (0.52-1.25); GLUCOSE 98 mg/dL (75-110); POTASSIUM 4.2 mmol/L (3.6-5.0); SODIUM 140.5 mmol/L (137-145); TOTAL PROTEIN 6.8 g/dL (6.3-8.2)
[2017-07-25 20:16] LABS: CREATINE KINASE MB 0.98 ng/mL (<4.55); TROPONIN I 0.012 ng/mL
--- NOTE | 2017-07-25 20:48 | EKG REPORT ---
SEVERITY:- ABNORMAL ECG - SINUS TACHYCARDIA NONSPECIFIC INTRAVENTRICULAR CONDUCTION DELAY PROBABLE INFERIOR INFARCT, AGE INDETERMINATE NONSPECIFIC T WAVE CHANGES LAT CHEST LEADS : Confirmed by: Niko Dyer 25-Jul-2017 20:47:38
[2017-07-25] MEDS ORDERED: METHYLPREDNISOLONE INJ 125 MG/2 ML SDV ONE (20:51)
--- NOTE | 2017-07-25 21:24 | RADIOLOGY REPORT (SQ) ---
EXAM DESCRIPTION: CT CHEST WITHOUT COMPLETED DATE/TIME: 07/25/2017 9:13 pm REASON FOR STUDY: sob COMPARISON: 07/25/2017 TECHNIQUE: CT scan performed of the chest without intravenous contrast. Images reviewed with lung, soft tissue and bone windows. Reconstructed coronal and sagittal MPR images reviewed. All images st ored on PACS. All CT scanners at this facility use dose modulation, iterative reconstruction, and/or weight based d osing when appropriate to reduce radiation dose to as low as reasonably achievable (ALARA). [facility]: Dose Right [facility]: CareDose [facility]: Dose Right [facility]: Teradose 4D [facility]: [employer] RADIATION DOSE: mGy. LIMITATIONS: No technical limitations. FINDINGS: LUNGS AND PLEURA: Moderate bilateral pleural effusions right glad with the left. Diffuse patchy airspace disease throughout both lungs predominantly in the middle and lower lobes. HILAR AND MEDIASTINAL STRUCTURES: Nonspecific small nodes in the mediastinum. HEART AND VASCULAR STRUCTURES: No aneurysm. No pericardial effusion. UPPER ABDOMEN: No significant findings. Limited exam. THYROID AND OTHER SOFT TISSUES: No masses. No adenopathy. BONES: No significant finding. HARDWARE: None in the chest. OTHER: No other significant findings. IMPRESSION: Diffuse airspace disease with bilateral pleural effusions. Differential is pneumonia ve rsus pulmonary edema. Nonspecific likely reactive nodes in the mediastinum. TECHNICAL DOCUMENTATION: JOB ID: [id number] Quality ID # [id number]: Final reports with documentation of one or more dose reduction techniques (e.g., Au tomated exposure control, adjustment of the mA and/or kV according to patient size, use of iterative reconstruction technique) 2010 [employer]- All Rights Reserved
[2017-07-25] MEDS ORDERED: MAG HYDROX/AL HYDROX/SIMETH SUSP 30 ML UDCUP PO PRN (22:10)
[2017-07-25] MEDS ORDERED: ACETAMINOPHEN 325 MG TABLET PO PRN (22:10)
[2017-07-25] MEDS ORDERED: HYDRALAZINE HCL INJ/PF 20 MG/1 ML SDV IV PRN (22:15)
[2017-07-25] MEDS ORDERED: NITROGLYCERIN 5 MG (0.2 MG/HR) PATCH.TD24 TD ONE (22:30)
[2017-07-25] MEDS ORDERED: TRAZODONE HCL 50 MG TABLET PO ONE ×2 (23:00)
[2017-07-26 00:15] LABS: CREATINE KINASE MB 0.66 ng/mL (<4.55); TROPONIN I 0.019 ng/mL
[2017-07-26 01:48] LABS: ARTERIAL BLOOD BASE EXCESS 3.2 mmol/L; ARTERIAL BLOOD O2 SATURATION 94.6 % (94-98)
[2017-07-26 02:10] LABS: URINE METHADONE SCREEN NEGATIVE; URINE OPIATES LOW NEGATIVE; URINE PHENCYCLIDINE SCREEN NEGATIVE
[2017-07-26 02:18] LABS: URINE BARBITURATES SCREEN UNCONFIRMED POSITIVE
[2017-07-26] MEDS ORDERED: INFLUENZA ADLT QUAD (36MOS+) 2017-18 VAC 0.5 ML SYR IM PRN (02:48)
[2017-07-26] MEDS: HEPARIN SOD (PORCINE) 5,000 UNIT/ML 1 ML SYRINGE SUBCUT SCH ×3 (05:11→21:48)
[2017-07-26 05:44] LABS: ABSOLUTE MONOCYTES (AUTO) 0.5 10^3/uL (0.1-1.4); ABSOLUTE NEUT (AUTO) 6.9 10^3/uL (1.7-8.2); BASOPHILS % (AUTO) 0.5 % (0-2); EOSINOPHILS % (AUTO) 0.4 % (0-6); HEMATOCRIT 35.9 % (37.9-51.0); HEMOGLOBIN 12.3 g/dL (13.5-17.0); LYMPHOCYTES % (AUTO) 20.7 % (13-45); MEAN CORPUSCULAR HEMOGLOBIN 29.4 pg (27.0-33.4); MEAN CORPUSCULAR HGB CONC 34.2 g/dL (32.0-36.0); MEAN CORPUSCULAR VOLUME 86 fl (80-97); MONOCYTES % (AUTO) 5.4 % (3-13); RED BLOOD COUNT 4.18 10^6/uL (4.35-5.55); RED CELL DISTRIBUTION WIDTH 14.5 % (11.5-14.0); WHITE BLOOD COUNT 9.5 10^3/uL (4.0-10.5)
[2017-07-26 06:03] LABS: ANION GAP 6 (5-19); BLOOD UREA NITROGEN 13 mg/dL (7-20); CALCIUM 8.6 mg/dL (8.4-10.2); CARBON DIOXIDE 25 mmol/L (22-30); CHLORIDE 106 mmol/L (98-107); CREATINE KINASE 149 U/L (55-170); CREATININE RESULT 1.06 mg/dL (0.52-1.25); GLUCOSE 164 mg/dL (75-110); MAGNESIUM 1.9 mg/dL (1.6-2.3); POTASSIUM 4.2 mmol/L (3.6-5.0)
[2017-07-26] MEDS ORDERED: VANCOMYCIN HCL 1,000 MG in DEXTROSE 5%-WATER 250 ML IV ONE (06:05)
--- NOTE | 2017-07-26 06:05 | PDOC H&P ---
History of Present Illness Admission Date/PCP: 07/25/17 22:28 Patient complains of: Shortness of breath History of Present Illness: CLARENCE TAYLOR is a 47 year old male with past medical history of tobacco dependence, hypertension, migraine headache, diabetes, bronchitis, asthma and remote CVA with residual left-sided weakness. Patient presents with 3 weeks of vague shortness of breath exacerbated by exertion denies fever chills nausea vomiting or chest pain. He was treated for bronchitis with Augmentin approximately 7 days ago without significant improvement. In the emergency room is found to have pulmonary edema and bilateral pleural effusions. He receives IV Lasix and referred to the hospitalist for admission. Patient's course is challenged by multiple refusals for treatment despite lengthy attempts of education. He is unwilling to provide a medication reconciliation. Past Medical History Cardiac Medical History: Reports: Hypertension Pulmonary Medical History: Reports: Bronchitis, Pneumonia Neurological Medical History: Reports: Migraine Endocrine Medical History: Reports: Diabetes Mellitus Type 2 Past Surgical History Past Surgical History: Reports: Orthopedic Surgery - 27 screws/plate in Rgt FA; Rgt Knee; Bone graft Social History Lives with: Spouse/Significant other Smoking Status: Current Every Day Smoker Cigarettes Packs Per Day: 20 Number of Years Smokin Last Time Smoked: 07/25/2017 Frequency of Alcohol Use: Social Hx Recreational Drug Use: No Drugs: None Hx Prescription Drug Abuse: No - Advance Directive Resuscitation Status: Full Code Family History Family History: CAD, CVA, DM, Hyperlipidemia, Hypertension Parental Family History Reviewed: Yes Children Family History Reviewed: Yes Sibling(s) Family History Reviewed.: Yes Medication/Allergy Home Medications: Amox Tr/Potassium Clavulanate [Augmentin 875-125 Tablet] 1 tab PO BID 10 Days tablet 07/18/17 Acyclovir [Zovirax 200 mg Capsule] 1 tab PO BID 07/25/17 Albuterol Sulfate [Ventolin 0.042% Neb 1.25 mg/3 mL Ampul] 1 dose IN Q4 Atorvastatin Calcium 1 tab PO DAILY 07/25/17 Butalb/Acetaminophen/Caffeine [Ldqqlv-Bxnikbyt-Piwu 50-300-40] 1 tab PO TID 03/04 Gabapentin 1 tab PO BID 07/25/17 Meloxicam 1 tab PO BID 07/25/17 Metformin HCl 1 tab PO BID 07/25/17 Pregabalin [Lyrica 50 mg Capsule] 1 tab PO TID 07/25/17 Propranolol HCl [Inderal 20 mg Tablet] 1 tab PO TID 07/25/17 Trazodone HCl 1 tab PO DAILY 07/25/17 Allergies/Adverse Reactions: No Known Allergies Allergy (Verified 07/25/17 17:12) Review of Systems ROS unobtainable: Due to mental status - Patient is delirious and refuses Physical Exam Vital Signs: Temp Pulse Resp BP Pulse Ox 100.3 F 102 H 24 H 123/61 100 07/26/17 03:39 07/26/17 03:39 07/25/17 23:00 07/26/17 03:39 07/26/17 03:39 General appearance: PRESENT: disheveled, mild distress. ABSENT: cooperative Head exam: PRESENT: atraumatic, normocephalic Eye exam: PRESENT: conjunctiva pink, EOMI, PERRLA. ABSENT: scleral icterus Ear exam: PRESENT: normal external ear exam Mouth exam: PRESENT: moist, tongue midline Neck exam: PRESENT: JVD. ABSENT: carotid bruit, lymphadenopathy, thyromegaly Respiratory exam: PRESENT: accessory muscle use, crackles, decreased breath sounds, prolonged expiratory phas, rales, retraction, tachypnea. ABSENT: chest wall tenderness Cardiovascular exam: PRESENT: gallop, RRR, +S1, +S2, tachycardia. ABSENT: diastolic murmur, rubs, systolic murmur Pulses: PRESENT: normal dorsalis pedis pul Vascular exam: PRESENT: normal capillary refill GI/Abdominal exam: PRESENT: normal bowel sounds, soft. ABSENT: distended, guarding, mass, organolmegaly, rebound, tenderness Rectal exam: PRESENT: deferred Extremities exam: PRESENT: full ROM. ABSENT: calf tenderness, clubbing, pedal edema Neurological exam: PRESENT: altered, awake, oriented to person, oriented to place, oriented to time, oriented to situation, CN II-XII grossly intact. ABSENT: motor sensory deficit Psychiatric exam: PRESENT: agitated, unusual affect. ABSENT: homicidal ideation , suicidal ideation Skin exam: PRESENT: dry, intact, warm. ABSENT: cyanosis, rash Results Laboratory Results: 07/26/17 05:23 07/25/17 07/26/17 07/26/17 23:32 01:25 05:23 WBC 9.5 RBC 4.18 L Hgb 12.3 L Hct 35.9 L MCV 86 MCH 29.4 MCHC 34.2 RDW 14.5 H Plt Count 246 Seg Neutrophils % 73.0 Lymphocytes % 20.7 Monocytes % 5.4 Eosinophils % 0.4 Basophils % 0.5 Absolute Neutrophils 6.9 Absolute Lymphocytes 2.0 Absolute Monocytes 0.5 Absolute Eosinophils 0.0 Absolute Basophils 0.0 Carbonic Acid 1.15 HCO3/H2CO3 Ratio 23:1 ABG pH 7.47 H ABG pCO2 38.2 ABG pO2 68.1 L ABG HCO3 26.9 H ABG O2 Saturation 94.6 ABG Base Excess 3.2 FiO2 3.5L Lactic Acid 0.9 07/25/17 07/25/17 23:32 23:32 Creatine Kinase 158 CK-MB (CK-2) 0.66 Troponin I 0.019 Impressions: Chest X-Ray 07/25/17 17:29 IMPRESSION: Borderline cardiomegaly with possible pulmonary edema. Multicentric pneumonia cannot be excluded. Chest CT 07/25/17 20:26 IMPRESSION: Diffuse airspace disease with bilateral pleural effusions. Differential is pneumonia versus pulmonary edema. Nonspecific likely reactive nodes in the mediastinum. Assessment & Plan - Diagnosis (1) Congestive heart failure Is this a current diagnosis for this admission?: Yes Plan: IMCU, aggressive diuresis, nitrates, BiPAP and YINA inhibitor, 2D echo ordered, unclear cause given recent URI and history of tobacco, hypertension diabetes and CVA. (2) Bilateral pleural effusion Is this a current diagnosis for this admission?: Yes Plan: Trial of conservative management with loop diuretic and BiPAP, reevaluation by imaging. Consider thoracentesis (3) Diabetes Qualifiers: Diabetes mellitus type: type 1 Plan: Unclear compliance home regiment with exception to metformin and sliding scale insulin. (4) Tobacco dependency Is this a current diagnosis for this admission?: Yes Plan: Tobacco Dependence patient received tobacco cessation counseling and offered nicotine replacement options (5) Hypertension Is this a current diagnosis for this admission?: Yes Plan: Hydralazine, Lasix and YINA inhibitor - Time Time Spent: 50 to 70 Minutes - Inpatient Certification Medical Necessity: Need Close Monitoring Due to Risk of Patient Decompensation
[2017-07-26 06:07] LABS: CREATINE KINASE MB 0.47 ng/mL (<4.55); TROPONIN I 0.017 ng/mL
--- NOTE | 2017-07-26 06:09 | PDOC H&P ---
History of Present Illness Admission Date/PCP: 07/25/17 22:28 Past Medical History Cardiac Medical History: Reports: Hypertension Pulmonary Medical History: Reports: Bronchitis, Pneumonia Neurological Medical History: Reports: Migraine Endocrine Medical History: Reports: Diabetes Mellitus Type 2 Past Surgical History Past Surgical History: Reports: Orthopedic Surgery - 27 screws/plate in Rgt FA; Rgt Knee; Bone graft Social History Lives with: Spouse/Significant other Smoking Status: Current Every Day Smoker Cigarettes Packs Per Day: 20 Number of Years Smokin Last Time Smoked: 07/25/2017 Frequency of Alcohol Use: Social Hx Recreational Drug Use: No Drugs: None Hx Prescription Drug Abuse: No - Advance Directive Resuscitation Status: Full Code Family History Family History: CAD, CVA, DM, Hyperlipidemia, Hypertension Parental Family History Reviewed: Yes Children Family History Reviewed: Yes Sibling(s) Family History Reviewed.: Yes Medication/Allergy Home Medications: Amox Tr/Potassium Clavulanate [Augmentin 875-125 Tablet] 1 tab PO BID 10 Days tablet 07/18/17 Acyclovir [Zovirax 200 mg Capsule] 1 tab PO BID 07/25/17 Albuterol Sulfate [Ventolin 0.042% Neb 1.25 mg/3 mL Ampul] 1 dose IN Q4 Atorvastatin Calcium 1 tab PO DAILY 07/25/17 Butalb/Acetaminophen/Caffeine [Nknsbk-Fegsevcm-Emwv 50-300-40] 1 tab PO TID 03/04 Gabapentin 1 tab PO BID 07/25/17 Meloxicam 1 tab PO BID 07/25/17 Metformin HCl 1 tab PO BID 07/25/17 Pregabalin [Lyrica 50 mg Capsule] 1 tab PO TID 07/25/17 Propranolol HCl [Inderal 20 mg Tablet] 1 tab PO TID 07/25/17 Trazodone HCl 1 tab PO DAILY 07/25/17 Allergies/Adverse Reactions: No Known Allergies Allergy (Verified 07/25/17 17:12) Physical Exam Vital Signs: Temp Pulse Resp BP Pulse Ox 100.3 F 102 H 24 H 123/61 100 07/26/17 03:39 07/26/17 03:39 07/25/17 23:00 07/26/17 03:39 07/26/17 03:39 Results Laboratory Results: 07/26/17 05:23 12/03/0407/26/17 07/26/17 23:32 01:25 05:23 WBC 9.5 RBC 4.18 L Hgb 12.3 L Hct 35.9 L MCV 86 MCH 29.4 MCHC 34.2 RDW 14.5 H Plt Count 246 Seg Neutrophils % 73.0 Lymphocytes % 20.7 Monocytes % 5.4 Eosinophils % 0.4 Basophils % 0.5 Absolute Neutrophils 6.9 Absolute Lymphocytes 2.0 Absolute Monocytes 0.5 Absolute Eosinophils 0.0 Absolute Basophils 0.0 Carbonic Acid 1.15 HCO3/H2CO3 Ratio 23:1 ABG pH 7.47 H ABG pCO2 38.2 ABG pO2 68.1 L ABG HCO3 26.9 H ABG O2 Saturation 94.6 ABG Base Excess 3.2 FiO2 3.5L Lactic Acid 0.9 07/25/17 07/25/17 23:32 23:32 Creatine Kinase 158 CK-MB (CK-2) 0.66 Troponin I 0.019 Impressions: Chest X-Ray 07/25/17 17:29 IMPRESSION: Borderline cardiomegaly with possible pulmonary edema. Multicentric pneumonia cannot be excluded. Chest CT 07/25/17 20:26 IMPRESSION: Diffuse airspace disease with bilateral pleural effusions. Differential is pneumonia versus pulmonary edema. Nonspecific likely reactive nodes in the mediastinum. Assessment & Plan - Diagnosis (1) Congestive heart failure Is this a current diagnosis for this admission?: Yes (2) Bilateral pleural effusion Is this a current diagnosis for this admission?: Yes (3) Diabetes Qualifiers: Diabetes mellitus type: type 1 (4) Tobacco dependency Is this a current diagnosis for this admission?: Yes (5) Hypertension Is this a current diagnosis for this admission?: Yes (6) Pneumonia Is this a current diagnosis for this admission?: Yes Plan: Patient develops fever of 100.3 without another obvious source, empiric antibiotics initiated, albuterol and Atrovent, incentive spirometry and flutter valve ordered. Follow-up CBC and culture.
[2017-07-26] MEDS ORDERED: VANCOMYCIN HCL INJ 1000 MG VIAL IV PRN (06:14)
[2017-07-26] MEDS ORDERED: VANCOMYCIN HCL 2,000 MG in DEXTROSE 5%-WATER 500 ML IV ONE (06:15)
[2017-07-26] MEDS ORDERED: VANCOMYCIN HCL 0 MG in DEXTROSE 5%-WATER 250 ML IV NR (06:15)
[2017-07-26] MEDS ORDERED: VANCOMYCIN HCL INJ 1000 MG VIAL ONE (07:11)
[2017-07-26] MEDS ORDERED: VANCOMYCIN HCL 2,000 MG in NORMAL SALINE 500 ML IV ONE (08:00)
[2017-07-26] MEDS: IPRATROPIUM/ALBUTEROL 0.5-2.5 MG/3 ML AMPUL NEB SCH ×3 (08:30→20:00)
[2017-07-26] MEDS: NITROGLYCERIN 5 MG (0.2 MG/HR) PATCH.TD24 TD SCH (09:43)
[2017-07-26] MEDS: CEFEPIME 1 GM/D5W RTU 1 GM/50 ML RTUPB IV SCH ×2 (09:45→21:42)
[2017-07-26] MEDS: FUROSEMIDE INJ/PF 40 MG/4 ML SDV IV SCH ×2 (09:45→21:48)
[2017-07-26] MEDS: ATORVASTATIN CALCIUM 80 MG TABLET PO SCH (09:45)
[2017-07-26] MEDS: GABAPENTIN 300 MG CAPSULE PO SCH ×2 (09:46→17:41)
[2017-07-26] MEDS: POTASSIUM CHLORIDE 10 MEQ TABLET.SA PO SCH ×2 (09:46→21:41)
[2017-07-26] MEDS: DOCUSATE SODIUM 100 MG CAPSULE PO SCH (09:46)
[2017-07-26] MEDS: ASPIRIN 81 MG TABLET, ENT COATED PO SCH (09:51)
[2017-07-26] MEDS: PROPRANOLOL HCL 20 MG TABLET PO SCH ×3 (09:52→17:40)
[2017-07-26] MEDS ORDERED: ACYCLOVIR 200 MG CAPSULE PO SCH (10:00)
[2017-07-26 12:35] LABS: CREATINE KINASE MB 0.58 ng/mL (<4.55)
[2017-07-26 12:40] LABS: TROPONIN I < 0.012 ng/mL
--- NOTE | 2017-07-26 12:45 | XCELERA REPORT ---
[address] [address] Transthoracic Echocardiogram Report Name: CLARENCE TAYLOR Age: 47 yrs Gender: Male : 1970 Patient Status: Inpatient Patient Location: [address] [place], [place] [address] Study Date: 07/26/2017 10:08 AM Height: 70 in Weight: 221 lb BSA: 2.2 m2 Procedure: A two-dimensional transthoracic echocardiogram with color flow and Doppler was performed. Study Quality: Fair. Reason For Study: pleural effusions / CHF / SOB History: pleural effusions / CHF / SOB. Ordering Physician: CHITO RUSSELL Performed By: Sanaz Priest Interpretation Summary The left ventricle is mildly dilated. There is normal left ventricular wall thickness. Left ventricular systolic function is low normal. Doppler measurements suggest normal left ventricular diastolic function The left ventricular wall motion is normal. There is no thrombus. There is no ventricular septal defect visualized. The right ventricle is grossly normal size. The right atrium is normal. The left atrium is mildly dilated. The interatrial septum is intact with no evidence for an atrial septal defect. There is no evidence of mitral valve prolapse. There is no vegetation seen on the mitral valve. There is no mitral valve stenosis. There is a severe amount of mitral regurgitation Flow reversal noted in pulmonary veins consistent with significant mitral regurgitation. There is no aortic valve stenosis There is no LVOT obstruction. No aortic regurgitation is present. There is no tricuspid stenosis. There is a trace amount of tricuspid regurgitation There is mild pulmonary hypertension by echo RVSP is 34 to 39 mm of Hg , with RA mean of 5 to 10. There is no pulmonic valvular stenosis. There is a trace amount of pulmonic regurgitation The aortic root is normal size. The inferior vena cava appeared normal and decreased > 50% with respiration (RAP 5-10 mmHg) Trace pleural effusion behind RA. MMode/2D Measurements & Calculations RVDd: 3.4 cm LVIDd: 5.8 cm FS: 29.4 % Ao root diam: 2.5 cm IVSd: 0.96 cm LVIDs: 4.1 cm EDV(Teich): 166.6 ml LVPWd: 0.99 cm ESV(Teich): 74.1 ml Ao root area: 4.8 cm2 EF(Teich): 55.5 % LA dimension: 4.4 cm Doppler Measurements & Calculations MV E max huber: MV P1/2t max huber: Ao V2 max: LV V1 max P.4 cm/sec 123.4 cm/sec 117.4 cm/sec 3.9 mmHg MV A max huber: MV P1/2t: 40.7 msec Ao max PG: LV V1 max: 62.7 cm/sec 5.5 mmHg 98.2 cm/sec MV E/A: 2.0 MVA(P1/2t): 5.4 cm2 MV dec slope: 887.8 cm/sec2 PA V2 max: PI end-d huber: TR max huber: 74.0 cm/sec 224.0 cm/sec 266.0 cm/sec PA max P.2 mmHg TR max P.3 mmHg Left Ventricle The left ventricle is mildly dilated. There is normal left ventricular wall thickness. LV EF is 55%. Left ventricular systolic function is low normal. Doppler measurements suggest normal left ventricular diastolic function. The left ventricular wall motion is normal. There is no thrombus. There is no ventricular septal defect visualized. Right Ventricle The right ventricle is grossly normal size. Atria The right atrium is normal. The left atrium is mildly dilated. The interatrial septum is intact with no evidence for an atrial septal defect. Mitral Valve There is no evidence of mitral valve prolapse. There is no vegetation seen on the mitral valve. There is no mitral valve stenosis. There is a severe amount of mitral regurgitation. Flow reversal noted in pulmonary veins consistent with significant mitral regurgitation. Aortic Valve There is no aortic valvular vegetation. There is no aortic valve stenosis. There is no LVOT obstruction. No aortic regurgitation is present. Tricuspid Valve There is no tricuspid stenosis. There is a trace amount of tricuspid regurgitation. There is mild pulmonary hypertension by echo. RVSP is 34 to 39 mm of Hg , with RA mean of 5 to 10. Pulmonic Valve There is no pulmonic valvular stenosis. There is a trace amount of pulmonic regurgitation. Great Vessels The aortic root is normal size. The inferior vena cava appeared normal and decreased > 50% with respiration (RAP 5-10 mmHg). Effusions Trace pleural effusion behind RA. : CHITO RUSSELL > [place]
[2017-07-26] MEDS ORDERED: DEXTROSE 40% GEL 15 GM TUBE PO PRN ×2 (15:21)
[2017-07-26] MEDS ORDERED: INSULIN LISPRO 100 UNIT/ML 3 ML VIAL SUBCUT PRN (15:21)
[2017-07-26] MEDS ORDERED: GLUCAGON,HUMAN RECOMB 1 MG INJ IM PRN (15:21)
[2017-07-26] MEDS ORDERED: DEXTROSE 50%-WATER 25 GM/50 ML DISP.SYRIN IV PRN ×2 (15:21)
--- NOTE | 2017-07-26 15:22 | PDOC PROGRESS REPORT ---
Subjective Progress Note for:: 07/26/17 Subjective:: Patient reports that his shortness of breath is improved. The patient states he does not think that he actually has congestive heart failure. Reason For Visit: PLEURAL EFFUSION, HEART FAILURE, DIABETES, HTN, HX Physical Exam Vital Signs: Temp Pulse Resp BP Pulse Ox 100.1 F 99 16 119/62 97 07/26/17 11:36 07/26/17 11:36 07/26/17 11:36 07/26/17 11:36 07/26/17 11:36 Intake & Output 07/25/17 07/26/17 07/27/17 06:59 06:59 06:59 Intake Total 5 240 Output Total 275 Balance -270 240 Weight 98.3 kg General appearance: PRESENT: no acute distress Eye exam: PRESENT: conjunctiva pink, EOMI, PERRLA. ABSENT: scleral icterus Neck exam: ABSENT: carotid bruit, JVD, lymphadenopathy, thyromegaly Respiratory exam: PRESENT: rales - Basilar rales. ABSENT: rhonchi, wheezes Cardiovascular exam: PRESENT: RRR, systolic murmur. ABSENT: diastolic murmur, rubs GI/Abdominal exam: PRESENT: normal bowel sounds, soft. ABSENT: distended, guarding, mass, organolmegaly, rebound, tenderness Extremities exam: ABSENT: calf tenderness, clubbing, pedal edema Neurological exam: PRESENT: alert, awake, oriented to person, oriented to place , oriented to time, oriented to situation, CN II-XII grossly intact. ABSENT: motor sensory deficit Psychiatric exam: PRESENT: anxious Skin exam: PRESENT: dry, intact, warm. ABSENT: cyanosis, rash Results Laboratory Results: 07/26/17 05:23 07/26/17 05:23 07/25/17 07/26/17 07/26/17 23:32 01:25 05:23 WBC 9.5 RBC 4.18 L Hgb 12.3 L Hct 35.9 L MCV 86 MCH 29.4 MCHC 34.2 RDW 14.5 H Plt Count 246 Seg Neutrophils % 73.0 Lymphocytes % 20.7 Monocytes % 5.4 Eosinophils % 0.4 Basophils % 0.5 Absolute Neutrophils 6.9 Absolute Lymphocytes 2.0 Absolute Monocytes 0.5 Absolute Eosinophils 0.0 Absolute Basophils 0.0 Carbonic Acid 1.15 HCO3/H2CO3 Ratio 23:1 ABG pH 7.47 H ABG pCO2 38.2 ABG pO2 68.1 L ABG HCO3 26.9 H ABG O2 Saturation 94.6 ABG Base Excess 3.2 FiO2 3.5L Sodium Potassium Chloride Carbon Dioxide Anion Gap BUN Creatinine Est GFR ( Amer) Est GFR (Non-Af Amer) Glucose Lactic Acid 0.9 Calcium Magnesium 07/26/17 05:23 WBC RBC Hgb Hct MCV MCH MCHC RDW Plt Count Seg Neutrophils % Lymphocytes % Monocytes % Eosinophils % Basophils % Absolute Neutrophils Absolute Lymphocytes Absolute Monocytes Absolute Eosinophils Absolute Basophils Carbonic Acid HCO3/H2CO3 Ratio ABG pH ABG pCO2 ABG pO2 ABG HCO3 ABG O2 Saturation ABG Base Excess FiO2 Sodium 137.0 Potassium 4.2 Chloride 106 Carbon Dioxide 25 Anion Gap 6 BUN 13 Creatinine 1.06 Est GFR ( Amer) > 60 Est GFR (Non-Af Amer) > 60 Glucose 164 H Lactic Acid Calcium 8.6 Magnesium 1.9 07/25/17 07/25/17 07/26/17 23:32 23:32 05:23 Creatine Kinase 158 CK-MB (CK-2) 0.66 0.47 Troponin I 0.019 0.017 07/26/17 07/26/17 07/26/17 05:23 11:49 11:49 Creatine Kinase 149 157 CK-MB (CK-2) 0.58 Troponin I < 0.012 Impressions: Chest X-Ray 07/25/17 17:29 IMPRESSION: Borderline cardiomegaly with possible pulmonary edema. Multicentric pneumonia cannot be excluded. Chest CT 07/25/17 20:26 IMPRESSION: Diffuse airspace disease with bilateral pleural effusions. Differential is pneumonia versus pulmonary edema. Nonspecific likely reactive nodes in the mediastinum. Assessment & Plan - Diagnosis (1) Congestive heart failure Is this a current diagnosis for this admission?: Yes Plan: Patient has severe mitral regurgitation on echocardiogram. This may be the cause of his congestive heart failure. Will consult cardiology. (2) Mitral regurgitation Is this a current diagnosis for this admission?: Yes Plan: We will consult cardiology. (3) Bilateral pleural effusion Is this a current diagnosis for this admission?: Yes Plan: Most likely secondary to congestive heart failure. Patient does have a possible pneumonia and this could be related to that. (4) Pneumonia Is this a current diagnosis for this admission?: Yes Plan: Patient was started on vancomycin and cefepime. (5) Diabetes Qualifiers: Diabetes mellitus type: type 1 Is this a current diagnosis for this admission?: Yes Plan: Continue with sliding scale insulin. (6) Hypertension Is this a current diagnosis for this admission?: Yes - Time Time Spent with patient: 25-34 minutes - Inpatient Certification Medical Necessity: Need Close Monitoring Due to Risk of Patient Decompensation
[2017-07-26] MEDS ORDERED: BUTALB/ACETAMINOPHEN/CAFFEINE 1 TAB EACH PO PRN (18:06)
[2017-07-26] MEDS ORDERED: TRAZODONE HCL 50 MG TABLET PO SCH (22:00)
[2017-07-27] MEDS: IPRATROPIUM/ALBUTEROL 0.5-2.5 MG/3 ML AMPUL NEB SCH ×2 (02:03→07:52)
[2017-07-27] MEDS: HEPARIN SOD (PORCINE) 5,000 UNIT/ML 1 ML SYRINGE SUBCUT SCH (06:02)
[2017-07-27 06:12] LABS: ABSOLUTE BASOPHILS # (AUTO) 0.1 10^3/uL (0.0-0.2); ABSOLUTE EOSINOPHILS # (AUTO) 0.1 10^3/uL (0.0-0.6); ABSOLUTE LYMPHOCYTES (AUTO) 2.9 10^3/uL (0.5-4.7); ABSOLUTE MONOCYTES (AUTO) 0.8 10^3/uL (0.1-1.4); ABSOLUTE NEUT (AUTO) 4.3 10^3/uL (1.7-8.2); BASOPHILS % (AUTO) 0.8 % (0-2); EOSINOPHILS % (AUTO) 1.8 % (0-6); HEMATOCRIT 37.7 % (37.9-51.0); HEMOGLOBIN 13.1 g/dL (13.5-17.0); HGB HCT DIFFERENCE 1.6; LYMPHOCYTES % (AUTO) 35.6 % (13-45); MEAN CORPUSCULAR HEMOGLOBIN 29.8 pg (27.0-33.4); MEAN CORPUSCULAR HGB CONC 34.7 g/dL (32.0-36.0); MEAN CORPUSCULAR VOLUME 86 fl (80-97); MONOCYTES % (AUTO) 9.4 % (3-13); RED CELL DISTRIBUTION WIDTH 14.6 % (11.5-14.0); SEGMENTED NEUTROPHILS % (AUTO) 52.4 % (42-78); WHITE BLOOD COUNT 8.3 10^3/uL (4.0-10.5)
[2017-07-27 06:50] LABS: ANION GAP 10 (5-19); BLOOD UREA NITROGEN 12 mg/dL (7-20); CARBON DIOXIDE 25 mmol/L (22-30); CHLORIDE 105 mmol/L (98-107); CREATININE RESULT 0.93 mg/dL (0.52-1.25); GLUCOSE 113 mg/dL (75-110); POTASSIUM 4.5 mmol/L (3.6-5.0); SODIUM 139.9 mmol/L (137-145)
[2017-07-27] MEDS: POTASSIUM CHLORIDE 10 MEQ TABLET.SA PO SCH (10:08)
[2017-07-27] MEDS: PROPRANOLOL HCL 20 MG TABLET PO SCH (10:08)
[2017-07-27] MEDS: NITROGLYCERIN 5 MG (0.2 MG/HR) PATCH.TD24 TD SCH (10:08)
[2017-07-27] MEDS: FUROSEMIDE INJ/PF 40 MG/4 ML SDV IV SCH (10:08)
[2017-07-27] MEDS: ASPIRIN 81 MG TABLET, ENT COATED PO SCH (10:09)
[2017-07-27] MEDS: DOCUSATE SODIUM 100 MG CAPSULE PO SCH (10:09)
[2017-07-27] MEDS: GABAPENTIN 300 MG CAPSULE PO SCH (10:09)
[2017-07-27] MEDS: ATORVASTATIN CALCIUM 80 MG TABLET PO SCH (10:09)
[2017-07-27] MEDS: CEFEPIME 1 GM/D5W RTU 1 GM/50 ML RTUPB IV SCH (10:10)
[2017-07-27 10:58] VITALS: BP 119/61
--- NOTE | 2017-07-27 11:24 | PDOC DISCHARGE SUMMARY ---
General - Admit/Disc Date/PCP Admission Date/Primary Care Provider: 07/25/17 22:28 Discharge Date: 07/27/17 - Discharge Diagnosis (1) Congestive heart failure Is this a current diagnosis for this admission?: Yes Summary: Acute on chronic diastolic dysfunction secondary to severe mitral regurgitation. (2) Mitral regurgitation Is this a current diagnosis for this admission?: Yes Summary: Patient has severe mitral regurgitation. He most likely need a valve replacement. He wishes to go to [facility] for further cardiac evaluation. (3) Bilateral pleural effusion Is this a current diagnosis for this admission?: Yes Summary: Secondary to congestive heart failure. (4) Pneumonia Is this a current diagnosis for this admission?: Yes Summary: Patient has negative cultures. We will sent home on Ceftin. (5) Diabetes Is this a current diagnosis for this admission?: Yes (6) Hypertension Is this a current diagnosis for this admission?: Yes - Additional Information Resuscitation Status: Full Code Discharge Diet: Cardiac, Diabetic Discharge Activity: Activity As Tolerated, Balance Activity w/Rest, Weigh Daily Home Medications: Atorvastatin Calcium [Lipitor 80 mg Tablet] 80 mg PO QHS 07/26/17 Butalb/Acetaminophen/Caffeine [Fioricet 50-300-40 mg Capsule] 2 cap PO TIDP PRN MDD 6 CAPS 07/26/17 Gabapentin [Neurontin 300 mg Capsule] 300 mg PO Q12 07/26/17 Glipizide [Glucotrol 5 mg Tablet] 5 mg PO [id number] 07/26/17 Metformin HCl [Glucophage 500 mg Tablet] 500 mg PO BIDBS 07/26/17 Pregabalin [Lyrica 50 mg Capsule] 50 mg PO Q8 07/26/17 Propranolol HCl [Inderal 20 mg Tablet] 20 mg PO Q8 07/26/17 Trazodone HCl [Desyrel] 150 mg PO QHS 07/26/17 Aspirin [Ecotrin 81 mg EC Tablet] 81 mg PO DAILY tabec 07/27/17 Cefuroxime Axetil [Ceftin 500 mg Tablet] 500 mg PO BID #14 tablet 07/27/17 Flu Vacc [id number] [id number] Up/Pf [Fluzone Adlt Quad [id number] Vac 0.5 ml Syr] 0.5 ml IM .DISCHARGE PRN disp.syrin 07/27/17 Furosemide [Lasix 40 mg Tablet] 40 mg PO QAM #30 tablet 07/27/17 Nitroglycerin [Nitro-Dur 5 mg (0.2 mg/Hr) Transdermal Patch] 1 each TD DAILY # 30 patch.td24 07/27/17 Potassium Chloride [Klor-Con 10 Meq Tablet.sa] 20 meq PO Q12 #60 tablet.sa 07/27 History of Present Illness History of Present Illness: CLARENCE TAYLOR is a 47 year old male who has a history of diabetes, asthma, history of CVA who presented with a three-week history of shortness of breath. Patient had previously been treated with Augmentin for bronchitis. Patient presented emergent was found to have pulmonary edema and bilateral pleural effusions. There is also question whether he might have pneumonia. He is admitted for further treatment. Hospital Course Hospital Course: 47-year-old gentleman who presented with shortness of breath. The patient was found to have bilateral pleural effusions along with pulmonary edema and a questionable pneumonia. He was started on cefepime for antibiotics. He also was started on Lasix for congestive heart failure. The patient had an echocardiogram that was done and showed normal systolic function. He did have severe mitral regurgitation however. The patient was treated with IV Lasix and had improvement in his respiratory status. The patient reported that he wanted any further cardiac workup to be done up at [facility]. The patient had responded well to the IV Lasix and was at his baseline was felt that he can be discharged home on p.o. Lasix and follow up with his primary care and then [facility] for further evaluation of severe mitral regurgitation. The patient did have the possible pneumonia and will be sent home on a course of Ceftin. All the cultures have been negative. His other medical problems have been stable. Physical Exam Vital Signs: Temp Pulse Resp BP Pulse Ox 97.5 F 78 16 119/61 91 L 07/27/17 10:54 07/27/17 10:54 07/27/17 10:54 07/27/17 10:54 07/27/17 10:54 Intake & Output 07/26/17 07/27/17 07/28/17 06:59 06:59 06:59 Intake Total 1989 Output Total 275 1700 Balance -270 290 Weight 98.3 kg 95.5 kg General appearance: PRESENT: no acute distress Eye exam: PRESENT: conjunctiva pink. ABSENT: scleral icterus Mouth exam: PRESENT: moist, tongue midline Neck exam: ABSENT: JVD Respiratory exam: PRESENT: clear to auscultation xander. ABSENT: rales, rhonchi, wheezes Cardiovascular exam: PRESENT: RRR. ABSENT: diastolic murmur, rubs, systolic murmur GI/Abdominal exam: PRESENT: normal bowel sounds, soft. ABSENT: distended, guarding, mass, organolmegaly, rebound, tenderness Extremities exam: ABSENT: calf tenderness, clubbing, pedal edema Neurological exam: PRESENT: alert, awake, oriented to person, oriented to place , oriented to time, oriented to situation, CN II-XII grossly intact. ABSENT: motor sensory deficit Psychiatric exam: PRESENT: appropriate affect Skin exam: PRESENT: dry, intact, warm. ABSENT: cyanosis, rash Results Laboratory Results: 07/27/17 06:02 07/27/17 06:02 07/27/17 07/27/17 06:02 06:02 WBC 8.3 RBC 4.40 Hgb 13.1 L Hct 37.7 L MCV 86 MCH 29.8 MCHC 34.7 RDW 14.6 H Plt Count 253 Seg Neutrophils % 52.4 Lymphocytes % 35.6 Monocytes % 9.4 Eosinophils % 1.8 Basophils % 0.8 Absolute Neutrophils 4.3 Absolute Lymphocytes 2.9 Absolute Monocytes 0.8 Absolute Eosinophils 0.1 Absolute Basophils 0.1 Sodium 139.9 Potassium 4.5 Chloride 105 Carbon Dioxide 25 Anion Gap 10 BUN 12 Creatinine 0.93 Est GFR ( Amer) > 60 Est GFR (Non-Af Amer) > 60 Glucose 113 H Calcium 9.0 07/25/17 07/25/17 07/26/17 23:32 23:32 05:23 Creatine Kinase 158 CK-MB (CK-2) 0.66 0.47 Troponin I 0.019 0.017 07/26/17 07/26/17 07/26/17 05:23 11:49 11:49 Creatine Kinase 149 157 CK-MB (CK-2) 0.58 Troponin I < 0.012 Impressions: Chest X-Ray 07/25/17 17:29 IMPRESSION: Borderline cardiomegaly with possible pulmonary edema. Multicentric pneumonia cannot be excluded. Chest CT 07/25/17 20:26 IMPRESSION: Diffuse airspace disease with bilateral pleural effusions. Differential is pneumonia versus pulmonary edema. Nonspecific likely reactive nodes in the mediastinum. Qualifiers PATEINT BEING DISCHARGED WITH ANY OF THE FOLLOWING DIAGNOSIS?: Heart Failure Plan Discharge Plan: Patient is discharged to home. Will follow up with his primary care in 1 week. Patient requests to be referred to [facility] for evaluation of his severe mitral regurgitation. Will defer to the primary care doctor for the referral to [facility]. Time Spent: Greater than 30 Minutes
== END 2017-07-27 11:29 | disposition home or self-care (01) | DRG 291 ==
LOC: ER 17:08 → EH 22:28 → 3W 07-26 00:10
PROVIDERS: ADMIT Internal Medicine; ATTEND Internal Medicine
PROC: 3E0234Z Introduction of Serum, Toxoid and Vaccine into Muscle, Percutaneous Approach (ICD-10-PCS; principal; 2017-07-27)
DX: I11.0 Hypertensive heart disease with heart failure (principal); J18.9 Pneumonia, unspecified organism; I69.354 Hemiplegia and hemiparesis following cerebral infarction affecting left non-dominant side; I50.33 Acute on chronic diastolic (congestive) heart failure; F17.210 Nicotine dependence, cigarettes, uncomplicated; I34.0 Nonrheumatic mitral (valve) insufficiency; G43.909 Migraine, unspecified, not intractable, without status migrainosus; E10.9 Type 1 diabetes mellitus without complications; J45.909 Unspecified asthma, uncomplicated; Z82.3 Family history of stroke; Z82.49 Family history of ischemic heart disease and other diseases of the circulatory system; Z83.3 Family history of diabetes mellitus; Z79.84 Long term (current) use of oral hypoglycemic drugs; Z23 Encounter for immunization
CPT/HCPCS: 36415; 36600; 71020; 71250; 80048; 80053; 80307; 82550; 82553; 82803; 82962; 83605; 83735; 83880; 84443; 84484; 85025; 87040; 87804; 90686; 93005; 93010; 93306; 94640; 94667; 94668; 94799; 96365; 96367; 96375; 99291; J0456; J0692; J1644; J1940; J3370; J3490; J7620

== ENCOUNTER → 2017-07-29 | Outpatient (CLI) | payer MEDICAID ==
--- NOTE | 2017-07-29 15:02 | RADIOLOGY REPORT (SQ) ---
EXAM DESCRIPTION: MRI LT LOWER JOINT WITHOUT COMPLETED DATE/TIME: 07/29/2017 2:33 pm REASON FOR STUDY: PAIN IN L ANKLE AND JOINTS OF FOOT M25.572 PAIN IN LEFT ANKLE AND JOINTS OF LEFT FOOT COMPARISON: None. TECHNIQUE: Left ankle images acquired and stored on PACS. Multiplanar images include fat sensitive s equences as T1, fluid sensitive sequences as FST2/STIR, cartilage sensitive sequences as FSPD, and gr adient echo sequences. LIMITATIONS: None. FINDINGS: BONE MARROW: No alteration of signal to suggest marrow replacement or edema. No occult fra cture. No large osteophytes. EFFUSIONS: There is fluid at along the anterior facet of the subtalar joint, best shown on axial imag e 16, sagittal image 13, and coronal image 12. No tibiotalar effusion. No loose bodies. OSSEOUS ARTICULATIONS: Normal tibiotalar, subtalar, talonavicular and calcaneocuboid joints. TALAR DOME AND TIBIAL PLAFOND: Normal cartilage. No osteochondral defect. ACHILLES TENDON: Intact without partial or full-thickness tear. No adjacent bursal fluid or edema. TIBIALIS ANTERIOR TENDON: Intact without edema at the 1st MT attachment. TIBIALIS POSTERIOR TENDON: Normal morphology and no edema at the navicular attachment. No tendon engel th fluid. FLEXOR HALLUCIS LONGUS AND FLEXOR DIGITORUM TENDONS: Normal morphology and no tendon sheath fluid. No edema of the os trigonum. PERONEUS LONGUS AND BREVIS TENDON: Normal morphology and no tendon sheath fluid. No subluxation. ATFL, CFL, PTFL: Intact. No thickening or signal alteration. No asha-ligamentous fluid. DELTOID LIGAMENT: Visualized components intact. TARSAL TUNNEL: No masses. No muscle atrophy. SINUS TARSI: 7 x 4 mm ganglion cyst along the intra osseous ligament best shown on coronal image 14 a nd sagittal image 15. No reactive marrow edema or erosions. PLANTAR FASCIA: No signal alteration or tear. ADJACENT SOFT TISSUES: No masses. OTHER: No other significant finding. IMPRESSION: Fluid along the anterior facet of the subtalar joint without aggressive bony erosion Small ganglion cysts along the interosseous ligament TECHNICAL DOCUMENTATION: JOB ID: [id number]- All Rights Reserved
== END ==
LOC: RAD 13:29
PROVIDERS: ATTEND Orthopaedic Surgery
DX: M25.572 Pain in left ankle and joints of left foot (principal)

== ENCOUNTER 2017-08-13 02:28 | Emergency (ER) | payer MEDICAID ==
[2017-08-13 03:22] LABS: ABSOLUTE EOSINOPHILS # (AUTO) 0.2 10^3/uL (0.0-0.6); ABSOLUTE LYMPHOCYTES (AUTO) 2.4 10^3/uL (0.5-4.7); ABSOLUTE MONOCYTES (AUTO) 0.3 10^3/uL (0.1-1.4); ABSOLUTE NEUT (AUTO) 8.7 10^3/uL (1.7-8.2); BASOPHILS % (AUTO) 0.4 % (0-2); EOSINOPHILS % (AUTO) 1.4 % (0-6); HEMATOCRIT 42.4 % (37.9-51.0); HEMOGLOBIN 14.2 g/dL (13.5-17.0); HGB HCT DIFFERENCE 0.2; LYMPHOCYTES % (AUTO) 20.7 % (13-45); MEAN CORPUSCULAR HEMOGLOBIN 29.2 pg (27.0-33.4); MEAN CORPUSCULAR HGB CONC 33.4 g/dL (32.0-36.0); MEAN CORPUSCULAR VOLUME 87 fl (80-97); MONOCYTES % (AUTO) 2.9 % (3-13); RED BLOOD COUNT 4.85 10^6/uL (4.35-5.55); RED CELL DISTRIBUTION WIDTH 15.2 % (11.5-14.0); SEGMENTED NEUTROPHILS % (AUTO) 74.6 % (42-78); WHITE BLOOD COUNT 11.6 10^3/uL (4.0-10.5)
[2017-08-13] MEDS ORDERED: LORAZEPAM INJ 2 MG/1 ML VIAL IV ONE (03:25)
[2017-08-13 03:52] LABS: ALANINE AMINOTRANSFERASE 46 U/L (21-72); ALBUMIN 4.1 g/dL (3.5-5.0); ALKALINE PHOSPHATASE 80 U/L (38-126); ANION GAP 10 (5-19); ASPARTATE AMINO TRANSFERASE 27 U/L (17-59); BILIRUBIN,DIRECT 0.3 mg/dL (0.0-0.4); BILIRUBIN,TOTAL 0.5 mg/dL (0.2-1.3); BLOOD UREA NITROGEN 14 mg/dL (7-20); CALCIUM 9.8 mg/dL (8.4-10.2); CARBON DIOXIDE 29 mmol/L (22-30); CHLORIDE 106 mmol/L (98-107); CREATINE KINASE 222 U/L (55-170); CREATININE RESULT 0.93 mg/dL (0.52-1.25); GLUCOSE 118 mg/dL (75-110); POTASSIUM 3.8 mmol/L (3.6-5.0); SODIUM 144.9 mmol/L (137-145); TOTAL PROTEIN 6.8 g/dL (6.3-8.2)
[2017-08-13 04:04] LABS: CREATINE KINASE MB 1.05 ng/mL (<4.55)
[2017-08-13 04:11] LABS: TROPONIN I < 0.012 ng/mL
[2017-08-13] MEDS ORDERED: FUROSEMIDE INJ/PF 40 MG/4 ML SDV IV ONE (04:34)
--- NOTE | 2017-08-13 04:34 | ER Document Report ---
ED General - General TRAVEL OUTSIDE OF THE [place] IN LAST 30 DAYS: No <MARVA DELUNA - Last Filed: 08/13/17 05:40> <KASHMIR SCALES - Last Filed: 08/13/17 10:04> - General Chief Complaint: Shortness Of Breath Stated Complaint: TROUBLE BREATHING Time Seen by Provider: 08/13/17 02:54 Notes: Patient is a 47-year-old male who presents with complaint of difficulty breathing. Patient was admitted here not too long ago for this initially diagnosis pneumonia but the later found out to be pulmonary edema most likely related to mitral valve regurgitation. He followed up with a banana carrier from [facility]. Patient says his banana carrier was awaiting to get the results of his echocardiogram and then was Discussed with him further about possible mitral valve replacement. Patient presents back today because of difficulty breathing is worsened over last 24 hours. He presents hypoxic with oxygen saturation around 83%. Denies recent fevers or infections. No vomiting. No diarrhea. Mild intermittent chest pain. No other complaints at this time. No history of coronary artery disease. (MARVA DELUNA) - Related Data Allergies/Adverse Reactions: No Known Allergies Allergy (Verified 08/13/17 03:06) Past Medical History - Social History Smoking Status: Current Every Day Smoker Frequency of alcohol use: None Drug Abuse: None Family History: CAD, CVA, DM, Hyperlipidemia, Hypertension Patient has suicidal ideation: No Patient has homicidal ideation: No - Past Medical History Cardiac Medical History: Reports: Hx Congestive Heart Failure, Hx Hypertension Pulmonary Medical History: Reports: Hx Bronchitis, Hx Pneumonia - 07/23/17 Neurological Medical History: Reports: Hx Migraine Endocrine Medical History: Reports: Hx Diabetes Mellitus Type 2 Renal/ Medical History: Denies: Hx Peritoneal Dialysis Past Surgical History: Reports: Hx Orthopedic Surgery - 27 screws/plate in Rgt FA; Rgt Knee; Bone graft - Immunizations Hx Diphtheria, Pertussis, Tetanus Vaccination: Yes <MARVA DELUNA - Last Filed: 08/13/17 05:40> Review of Systems <MARVA DELUNA - Last Filed: 08/13/17 05:40> <KASHMIR SCALES - Last Filed: 08/13/17 10:04> - Review of Systems Notes: My Normal Review Basic REVIEW OF SYSTEMS: CONSTITUTIONAL : Denies fever, chills, or sweats. Denies recent illness. EENT: Denies eye, ear, throat, or mouth pain or symptoms. Denies nasal or sinus congestion. CARDIOVASCULAR: Mild intermittent chest pain. RESPIRATORY: Difficulty breathing. GASTROINTESTINAL: Denies abdominal pain. Denies nausea, vomiting, or diarrhea. MUSCULOSKELETAL: Denies neck or back pain or joint pain or swelling. SKIN: Denies rash or skin lesions. NEUROLOGICAL: Denies altered mental status or loss of consciousness. Denies headache. Denies weakness or paralysis or loss of use of either side. Denies problems with gait or speech. Denies sensory or motor loss. ALL OTHER SYSTEMS REVIEWED AND NEGATIVE. (MARVA DELUNA) Physical Exam <MARVA DELUNA - Last Filed: 08/13/17 05:40> <KASHMIR SCALES - Last Filed: 08/13/17 10:04> - Vital signs Vitals: Temp Pulse Resp BP Pulse Ox 97.6 F 88 22 H 166/84 H 83 L 08/13/17 02:46 08/13/17 02:46 08/13/17 02:46 08/13/17 02:46 08/13/17 02:46 - Notes Notes: General Appearance: Well nourished, alert, cooperative, moderate acute distress , no obvious discomfort. Vitals: reviewed, See vital signs table. Head: no swelling or tenderness to the head Eyes: PERRL, EOMI, Conjuctiva clear Mouth: No decreasd moisture Neck: Supple, no neck tenderness, No thyromegaly Lungs: Bibasilar rales. Patient has tachypnea and increased work of breathing. Heart: Normal rate, Regular rythm, No murmur, no rub Abdomen: Normal BS, soft, No rigidity, No abdominal tenderness, No guarding, no rebound, no abdominal masses, no organomegaly Extremities: strength 5/5 in all extremities, good pulses in all extremities, no swelling or tenderness in the extremities, no edema. Skin: warm, dry, appropriate color, no rash Neuro: speech clear, oriented x 3, normal affect, responds appropriately to questions. (MARVA DELUNA) Course - Laboratory Result Diagrams: 08/13/17 02:58 08/13/17 02:58 <MARVA DELUNA - Last Filed: 08/13/17 05:40> - Laboratory Result Diagrams: 08/13/17 02:58 08/13/17 02:58 <KASHMIR SCALES - Last Filed: 08/13/17 10:04> - Re-evaluation Re-evalutation: 08/13/17 04:48 Patient is doing much improved on the BiPAP. His chest x-ray is consistent with severe pulmonary edema and congestion. I do not suspect this is pneumonia based on the fact he has no fevers and has a history of this recurrently occurring most likely related to his mitral valve regurgitation. I did call and speak with Edison at [facility] cardiac connections. He did speak with Dr. Elizondo who agrees to accept the patient. They said they would be calling back with the bed assignment. I explained the plan to the patient he is agreeable to it. Dictation of this chart was performed using voice recognition software; therefore, there may be some unintended grammatical errors. (MARVA DELUNA) 08/13/17 10:03 Transport is here to take the patient to [facility]. At this time he is standing up urinating, vital signs are stable, patient is stable for transport. (KASHMIR SCALES) - Vital Signs Vital signs: Temp Pulse Resp BP Pulse Ox 98.3 F 88 17 126/71 H 96 08/13/17 09:51 08/13/17 02:46 08/13/17 09:51 08/13/17 09:51 08/13/17 09:51 - Laboratory Laboratory results interpreted by me: 08/13/17 08/13/17 08/13/17 02:58 02:58 02:58 WBC 11.6 H RDW 15.2 H Monocytes % 2.9 L Absolute Neutrophils 8.7 H Glucose 118 H Creatine Kinase 222 H NT-Pro-B Natriuret Pep 2030 H Discharge <MARVA DELUNA - Last Filed: 08/13/17 05:40> <KASHMIR SCALES - Last Filed: 08/13/17 10:04> - Discharge Clinical Impression: Mitral valve prolapse, Respiratory distress Pulmonary edema Qualifiers: Chronicity: acute Qualified Code(s): J81.0 - Acute pulmonary edema Condition: Stable Disposition: [facility]
--- NOTE | 2017-08-13 05:37 | RADIOLOGY REPORT (SQ) ---
EXAM DESCRIPTION: CHEST SINGLE VIEW CLINICAL HISTORY: dyspnea COMPARISON: 07/25/2017 FINDINGS: Single frontal view of the chest. The cardiomediastinal silhouette has normal size and contour. Unchanged right basilar opacities. Patchy left basilar opacities with improved aeration of the left lung. Leads overlie the chest. No pneumothorax or pleural effusion. No displaced rib fractures identified. Upper abdominal soft tissues are unremarkable. IMPRESSION: 1. Persistent bilateral airspace opacities, most confluent in the right lung base. There is improved aeration of the left lung from the previous study.
[2017-08-13 10:04] VITALS: BP 126/71
--- NOTE | 2017-08-13 10:57 | EKG REPORT ---
SEVERITY:- BORDERLINE ECG - CONSIDER LEFT VENTRICULAR HYPERTROPHY SINUS RHYTHM WITH SHORT DE INTERVAL : Confirmed by: Mira Hill MD 13-Aug-2017 10:57:16
== END 2017-08-13 10:06 | disposition short-term general hospital (02) ==
LOC: ER 02:28
DX: I34.1 Nonrheumatic mitral (valve) prolapse (principal); J81.0 Acute pulmonary edema; R06.02 Shortness of breath; F17.200 Nicotine dependence, unspecified, uncomplicated; I10 Essential (primary) hypertension; E11.9 Type 2 diabetes mellitus without complications; R07.9 Chest pain, unspecified
CPT/HCPCS: 93005; 99285; 96374; 96375; 36415; 82553; 82550; 85025; 80053; 84484; 83880; 71010; 93010; 94660; J1940; J2060

== ENCOUNTER 2018-01-06 09:54 | Emergency (ER) | payer SELFPAY ==
--- NOTE | 2018-01-06 10:22 | ER Document Report ---
ED GI Bleed / Rectal Pain - General Chief Complaint: Hemorrhoids Stated Complaint: BUTT PAIN Time Seen by Provider: 01/06/18 10:07 Mode of Arrival: Ambulatory Information source: Patient Notes: 47-year-old male presents to ED for complaint of pain in his anal area. He states he believes he has hemorrhoids. He states he has had pain for about a month and is been using creams and they are not helping him. He also has a history of genital herpes. He states his been taking his Valtrex with no relief from the pain. TRAVEL OUTSIDE OF THE [place] IN LAST 30 DAYS: No - HPI Patient complains to provider of: Rectal pain Onset: Other - Month Timing/Duration: Persistent Quality of pain: Sharp Severity of symptoms: Moderate Pain Level: 3 Associated symptoms: None Exacerbated by: Sitting, Movement, Walking Relieved by: Denies Similar symptoms previously: Yes Recently seen / treated by doctor: Yes - Related Data Allergies/Adverse Reactions: No Known Allergies Allergy (Verified 08/13/17 03:06) Past Medical History - General Information source: Patient - Social History Smoking Status: Current Every Day Smoker Cigarette use (# per day): Yes - Pack per day Smoking Education Provided: Yes - 4 minutes Frequency of alcohol use: Occasional Drug Abuse: None Family History: CAD, CVA, DM, Hyperlipidemia, Hypertension Patient has suicidal ideation: No Patient has homicidal ideation: No - Past Medical History Cardiac Medical History: Reports: Hx Congestive Heart Failure, Hx Hypertension Pulmonary Medical History: Reports: Hx Bronchitis, Hx Pneumonia - 07/23/17 Neurological Medical History: Reports: Hx Cerebrovascular Accident, Hx Migraine Endocrine Medical History: Reports: Hx Diabetes Mellitus Type 2 Renal/ Medical History: Reports: Other - Genital herpes Malignancy Medical History: Reports None GI Medical History: Reports: None Musculoskeltal Medical History: Reports Hx Musculoskeletal Trauma Skin Medical History: Reports None Psychiatric Medical History: Reports: None Traumatic Medical History: Reports: Hx Fractures Infectious Medical History: Reports: None Past Surgical History: Reports: Hx Orthopedic Surgery - 27 screws/plate in Rgt FA; Rgt Knee; Bone graft - Immunizations Hx Diphtheria, Pertussis, Tetanus Vaccination: Yes Review of Systems - Review of Systems Constitutional: No symptoms reported EENT: No symptoms reported Cardiovascular: No symptoms reported Respiratory: No symptoms reported Gastrointestinal: Other - Pain in anal area Genitourinary: No symptoms reported Male Genitourinary: Other - States he has genital herpes and is on Valtrex Musculoskeletal: No symptoms reported Skin: No symptoms reported Hematologic/Lymphatic: No symptoms reported Neurological/Psychological: No symptoms reported -: Yes All other systems reviewed and negative Physical Exam - Vital signs Vitals: Temp Pulse Resp BP Pulse Ox 97.9 F 58 L 16 136/82 H 97 01/06/18 10:00 01/06/18 10:00 01/06/18 10:00 01/06/18 10:00 01/06/18 10:00 Interpretation: Normal - General General appearance: Appears well, Alert - HEENT Head: Normocephalic, Atraumatic Eyes: Normal Pupils: PERRL - Respiratory Respiratory status: No respiratory distress Chest status: Nontender Breath sounds: Normal Chest palpation: Normal - Cardiovascular Rhythm: Regular Heart sounds: Normal auscultation Murmur: No - Abdominal Inspection: Normal Distension: No distension Bowel sounds: Normal Tenderness: Nontender Organomegaly: No organomegaly - Rectal Tenderness: Yes - Small vesicle noted Hemorrhoids: None - Back Back: Normal, Nontender - Extremities General upper extremity: Normal inspection, Nontender, Normal color, Normal ROM , Normal temperature General lower extremity: Normal inspection, Nontender, Normal color, Normal ROM , Normal temperature, Normal weight bearing. No: Terell's sign - Neurological Neuro grossly intact: Yes Cognition: Normal Orientation: AAOx4 [place] Coma Scale Eye Opening: Spontaneous [place] Coma Scale Verbal: Oriented [place] Coma Scale Motor: Obeys Commands [place] Coma Scale Total: 15 Speech: Normal Motor strength normal: LUE, RUE, LLE, RLE Sensory: Normal - Psychological Associated symptoms: Normal affect, Normal mood - Skin Skin Temperature: Warm Skin Moisture: Dry Skin Color: Normal Course - Re-evaluation Re-evalutation: 01/06/18 10:20 No definite hemorrhoids noted patient has can for him would medicine as he feels like he has been hemorrhoids. He does have a vesicle. Patient states he is out of Valtrex for genital herpes and will need another prescription. - Vital Signs Vital signs: Temp Pulse Resp BP Pulse Ox 97.9 F 58 L 16 136/82 H 97 01/06/18 10:00 01/06/18 10:00 01/06/18 10:00 01/06/18 10:00 01/06/18 10:00 Discharge - Discharge Clinical Impression: Rectal pain, Genital herpes in men HTN (hypertension) Qualifiers: Hypertension type: unspecified Qualified Code(s): I10 - Essential (primary) hypertension Condition: Stable Disposition: HOME, SELF-CARE Instructions: Family Physicians / Practices Additional Instructions: Hemorrhoids You have hemorrhoids. These are formed by enlargement of veins around the anus. The cause is increased pressure in the veins, from or straining at bowel movements. Hemorrhoids often cause itching and bleeding with bowel movements. When a hemorrhoid becomes clotted, severe pain and swelling result. Soothing creams and suppositories are often prescribed. Warm sitz-baths may also decrease pain, swelling, and itching. Eat a high-fiber diet. Stool softeners such as Metamucil will help. Keep the area very clean. Medicated cleansing pads (such as Tucks) are useful after bowel movements. A hose-mounted shower unit (like a shower massager at low water pressure) can be used to clean around tender hemorrhoid tags. You should call the doctor or return if you develop fever, increasing pain , or an enlarging mass around the anus, or if you simply fail to improve with treatment. Genital Herpes Your exam suggests that you have a herpes infection. A culture can confirm the diagnosis. Herpes is caused by a virus, and can be transmitted sexually. After the initial infection has healed, the virus often erupts at the same location from time to time. Herpes can be treated with anti-viral medication. The medicine can be used as pills or ointment. It's most effective if started with the first symptoms of the attack. It is not a "cure" -- it simply shortens the length of the illness. If this is not your first attack, the medicine may not help you. In the female, herpes can infect the baby as it passes through the canal, causing a life-threatening disease. You should inform the help desk operator that you've had herpes should you (or your spouse) become . Sexual contact should be avoided any time the sores are present, but the virus may be contagious even at other times. The use of condoms may help prevent infection in your partner. FOLLOW-UP CARE: If you have been referred to a physician for follow-up care, call the physician s office for an appointment as you were instructed or within the next two days. If you experience worsening or a significant change in your symptoms, notify the physician immediately or return to the Emergency Department at any time for re-evaluation. Prescriptions: Hydrocortisone Acetate [Anusol-Hc] 25 mg RC Q6 PRN #10 supp.rect PRN Reason: Valacyclovir HCl [Valtrex] 1,000 mg PO BID #14 tablet Forms: Elevated Blood Pressure, Smoking Cessation Education, Return to Work
[2018-01-06 10:59] VITALS: BP 132/80
== END 2018-01-06 10:59 | disposition home or self-care (01) ==
LOC: ER 09:54
DX: A60.00 Herpesviral infection of urogenital system, unspecified (principal); K62.89 Other specified diseases of anus and rectum; L03.011 Cellulitis of right finger; R23.8 Other skin changes; I10 Essential (primary) hypertension; E11.9 Type 2 diabetes mellitus without complications; F17.210 Nicotine dependence, cigarettes, uncomplicated; Z71.6 Tobacco abuse counseling
CPT/HCPCS: 99283

== ENCOUNTER → 2018-04-05 | Outpatient (CLI) | payer SELFPAY ==
[2018-04-05 07:36] LABS: ABSOLUTE EOSINOPHILS # (AUTO) 0.1 10^3/uL (0.0-0.6); ABSOLUTE LYMPHOCYTES (AUTO) 1.6 10^3/uL (0.5-4.7); ABSOLUTE MONOCYTES (AUTO) 0.3 10^3/uL (0.1-1.4); ABSOLUTE NEUT (AUTO) 2.3 10^3/uL (1.7-8.2); BASOPHILS % (AUTO) 0.7 % (0-2); EOSINOPHILS % (AUTO) 1.8 % (0-6); HEMATOCRIT 41.4 % (37.9-51.0); HEMOGLOBIN 14.4 g/dL (13.5-17.0); LYMPHOCYTES % (AUTO) 36.4 % (13-45); MEAN CORPUSCULAR HEMOGLOBIN 30.6 pg (27.0-33.4); MEAN CORPUSCULAR HGB CONC 34.9 g/dL (32.0-36.0); MEAN CORPUSCULAR VOLUME 88 fl (80-97); MONOCYTES % (AUTO) 7.8 % (3-13); PLATELET COUNT 223 10^3/uL (150-450); RED BLOOD COUNT 4.71 10^6/uL (4.35-5.55); RED CELL DISTRIBUTION WIDTH 14.6 % (11.5-14.0); SEGMENTED NEUTROPHILS % (AUTO) 53.3 % (42-78); TOTAL CELLS COUNTED % (AUTO) 100 %; WHITE BLOOD COUNT 4.3 10^3/uL (4.0-10.5)
[2018-04-05 08:01] LABS: ALANINE AMINOTRANSFERASE 33 U/L (21-72); ALBUMIN 3.9 g/dL (3.5-5.0); ALKALINE PHOSPHATASE 68 U/L (38-126); ANION GAP 14 (5-19); ASPARTATE AMINO TRANSFERASE 27 U/L (17-59); BILIRUBIN,DIRECT 0.3 mg/dL (0.0-0.4); BILIRUBIN,TOTAL 0.6 mg/dL (0.2-1.3); BLOOD UREA NITROGEN 15 mg/dL (7-20); CALCIUM 9.5 mg/dL (8.4-10.2); CARBON DIOXIDE 23 mmol/L (22-30); CHLORIDE 107 mmol/L (98-107); CHOLESTEROL 162.71 mg/dL (0-200); GLUCOSE 124 mg/dL (75-110); SODIUM 143.6 mmol/L (137-145); TOTAL PROTEIN 6.9 g/dL (6.3-8.2); TRIGLYCERIDES 124 mg/dL (<150)
[2018-04-05 08:12] LABS: DIRECT LDL 78 mg/dL (<100)
== END ==
LOC: CCC 07:18
DX: Z13.9 Encounter for screening, unspecified (principal); E11.9 Type 2 diabetes mellitus without complications
CPT/HCPCS: 36415; 80053; 80061; 83036; 84443; 85025

== ENCOUNTER 2018-07-24 08:21 | Emergency (ER) | payer SELFPAY ==
[2018-07-24 08:31] VITALS: BP 160/91
--- NOTE | 2018-07-24 09:01 | ER Document Report ---
ED Respiratory Problem - General Chief Complaint: Cough Stated Complaint: COUGHING/BODY SORENESS Time Seen by Provider: 07/24/18 08:48 Notes: 48-year-old male presents to the ER complaining of coughing up blood. Patient states has been coughing for several days but last night began coughing up some blood. He also complained of a little bit of a bloody nose. He hit his head on Saturday to on a truck door and I had a small laceration he just wanted to have checked. He denies any loss of consciousness with this. Laceration has stopped bleeding at this time. Patient complains of chills but denies any fever states she has been having runny nose and congestion. He is been coughing up usually to green yellow sputum but again last night he had some specks of bright red blood. TRAVEL OUTSIDE OF THE [place] IN LAST 30 DAYS: No - Related Data Allergies/Adverse Reactions: No Known Allergies Allergy (Verified 07/24/18 08:27) Past Medical History - Social History Smoking Status: Current Every Day Smoker Frequency of alcohol use: None Drug Abuse: None Family History: CAD, CVA, DM, Hyperlipidemia, Hypertension Patient has suicidal ideation: No Patient has homicidal ideation: No - Past Medical History Cardiac Medical History: Reports: Hx Congestive Heart Failure, Hx Hypertension Pulmonary Medical History: Reports: Hx Bronchitis, Hx Pneumonia - 07/23/17 Neurological Medical History: Reports: Hx Cerebrovascular Accident, Hx Migraine Endocrine Medical History: Reports: Hx Diabetes Mellitus Type 2 Renal/ Medical History: Denies: Hx Peritoneal Dialysis Musculoskeletal Medical History: Reports Hx Musculoskeletal Trauma Traumatic Medical History: Reports: Hx Fractures Past Surgical History: Reports: Hx Orthopedic Surgery - 27 screws/plate in Rgt FA; Rgt Knee; Bone graft - Immunizations Hx Diphtheria, Pertussis, Tetanus Vaccination: Yes Review of Systems - Review of Systems Constitutional: Chills. denies: Fever Cardiovascular: Dyspnea. denies: Chest pain Respiratory: Cough, Hemoptysis Skin: denies: Rash -: Yes All other systems reviewed and negative Physical Exam - Vital signs Vitals: Temp Pulse Resp BP Pulse Ox 98.8 F 84 16 160/91 H 95 07/24/18 08:28 07/24/18 08:28 07/24/18 08:28 07/24/18 08:28 07/24/18 08:28 - Notes Notes: GENERAL_APPEARANCE: well_nourished, alert, cooperative VITALS: reviewed, see vital signs table. HEAD: Very small laceration on the middle of the brow running sagittally at about 5 mm that is scabbed over, no redness no heat EYES: PERRL, EOMI, conjunctiva_clear. NOSE: no_nasal_discharge. There is dried blood in the right nare no active bleeding MOUTH: (-)decreased moisture. THROAT: no_throat_inflammation, no_airway_obstruction. no_lymphadenopathy NECK: supple, no_neck_tenderness, (-)thyromegaly. BACK: no_back_tenderness. CHEST_WALL: no_chest_tenderness. LUNGS: no_wheezing, no_rales, no_rhonchi, (-)accessory muscle use, good air exchange bilateral. HEART: normal_rate, normal_rhythm, normal_S1, normal_S2, (-)S3, (-)S4, no_ murmur, no_rub. ABDOMEN: normal_BS, soft, no_abd_tenderness, (-)guarding, (-)rebound, no_ organomegaly, no_abd_masses. EXTREMITIES: good pulses in all_extremities, no_swelling\tenderness in the extremities, no_edema. SKIN: warm, dry, good_color, no_rash. MENTAL_STATUS: speech_clear, oriented_X_3, normal_affect, responds_ appropriately to questions. NEURO: Neg Motor or Sensory Deficits on exam, there may be slight on perceived weakness in the left lower extremity due to prior stroke still 5 out of 5 on my exam, CN 2-12 intact, DTR 2+ symmetric x 4, No cerbellar signs Course - Re-evaluation Re-evalutation: 07/24/18 09:01 Patient presents with hemoptysis. He complains of chills and coughing up blood. The patient does have some dried blood in his right nare he may have had a bloody nose and aspirated it. However must rule out PE. We will get an x -ray and CTA of the chest. Patient has a small laceration on his forehead this was done on Saturday it is past the point for repair it is actually scabbed over and is not bleeding at all it does not look infected no intervention is needed for this. 07/24/18 12:48 Chest x-ray and CT shows no PE but the patient does have pneumonia patient was given a dose of Levaquin here. Wioll be placed on Levaquin for home. Patient is stable has no oxygen requirements. - Vital Signs Vital signs: Temp Pulse Resp BP Pulse Ox 98.8 F 84 16 160/91 H 95 07/24/18 08:28 07/24/18 08:28 07/24/18 08:28 07/24/18 08:28 07/24/18 08:28 - Laboratory Result Diagrams: 07/24/18 09:25 07/24/18 09:25 Laboratory results interpreted by me: 07/24/18 07/24/18 07/24/18 09:25 09:25 09:25 RDW 14.4 H PT 26.8 H Glucose 114 H - Diagnostic Test Radiology reviewed: Reports reviewed Radiology results interpreted by me: 07/24/18 12:47 Chest X-Ray 07/24/18 08:56 IMPRESSION: 1. Significant improvement in the appearance of the lungs with decrease in the bilateral diffuse airspace disease since examination dated 2016. Mild residual changes remain. Chest/Abdomen CTA 07/24/18 08:56 IMPRESSION: 1. No PE. 2. Diffuse airspace disease most consistent with atypical pneumonia or hypersensitivity. - EKG Interpretation by Nv EKG shows normal: Sinus rhythm Rate: Normal Rhythm: NSR Discharge - Discharge Clinical Impression: Pneumonia Qualifiers: Pneumonia type: due to unspecified organism Laterality: bilateral Lung location : unspecified part of lung Qualified Code(s): J18.9 - Pneumonia, unspecified organism Condition: Good Disposition: HOME, SELF-CARE Instructions: Pneumonia ([facility]) Prescriptions: Levofloxacin [Levaquin 750 mg Tablet] 750 mg PO DAILY #7 tablet Ref[facility]: [facility] [NO LOCAL MD] - Follow up as needed
--- NOTE | 2018-07-24 09:20 | RADIOLOGY REPORT (SQ) ---
EXAM DESCRIPTION: CHEST SINGLE VIEW COMPLETED DATE/TIME: 07/24/2018 9:10 am REASON FOR STUDY: Hemoptysis hemoptysis COMPARISON: None. EXAM PARAMETERS: NUMBER OF VIEWS: One view. TECHNIQUE: Single frontal radiographic view of the chest acquired. RADIATION DOSE: NA LIMITATIONS: None. FINDINGS: LUNGS AND PLEURA: The significant improvement in the previously demonstrated bilateral di ffuse airspace disease. Mild residual changes remain in the lungs, slightly more so on the right. N o pneumothorax or pleural effusion. MEDIASTINUM AND HILAR STRUCTURES: No masses. Contour normal. HEART AND VASCULAR STRUCTURES: Borderline cardiomegaly, stable. Normal vasculature. BONES: No acute findings. HARDWARE: None in the chest. OTHER: No other significant finding. IMPRESSION: 1. Significant improvement in the appearance of the lungs with decrease in the bilatera l diffuse airspace disease since examination dated 07/25/2017. Mild residual changes remain. TECHNICAL DOCUMENTATION: JOB ID: [id number] [employer]- All Rights Reserved Reading location - IP/workstation name: [email or web address]
[2018-07-24 09:40] LABS: ABSOLUTE BASOPHILS # (AUTO) 0.1 10^3/uL (0.0-0.2); ABSOLUTE EOSINOPHILS # (AUTO) 0.1 10^3/uL (0.0-0.6); ABSOLUTE MONOCYTES (AUTO) 0.6 10^3/uL (0.1-1.4); ABSOLUTE NEUT (AUTO) 6.2 10^3/uL (1.7-8.2); BASOPHILS % (AUTO) 0.7 % (0-2); EOSINOPHILS % (AUTO) 1.6 % (0-6); HEMATOCRIT 40.9 % (37.9-51.0); LYMPHOCYTES % (AUTO) 21.9 % (13-45); MEAN CORPUSCULAR HEMOGLOBIN 30.5 pg (27.0-33.4); MEAN CORPUSCULAR HGB CONC 34.4 g/dL (32.0-36.0); MEAN CORPUSCULAR VOLUME 89 fl (80-97); MONOCYTES % (AUTO) 6.8 % (3-13); PLATELET COUNT 224 10^3/uL (150-450); RED BLOOD COUNT 4.61 10^6/uL (4.35-5.55); RED CELL DISTRIBUTION WIDTH 14.4 % (11.5-14.0); TOTAL CELLS COUNTED % (AUTO) 100 %
[2018-07-24 09:46] LABS: INTERNATIONAL RATION (INR) 2.34; PROTHROMBIN TIME 26.8 SEC (11.4-15.4)
[2018-07-24 09:57] LABS: ANION GAP 12 (5-19); BLOOD UREA NITROGEN 12 mg/dL (7-20); CALCIUM 9.3 mg/dL (8.4-10.2); CARBON DIOXIDE 24 mmol/L (22-30); CHLORIDE 107 mmol/L (98-107); GLUCOSE 114 mg/dL (75-110); POTASSIUM 4.7 mmol/L (3.6-5.0); SODIUM 142.5 mmol/L (137-145)
--- NOTE | 2018-07-24 10:17 | RADIOLOGY REPORT (SQ) ---
EXAM DESCRIPTION: CTA CHEST COMPLETED DATE/TIME: 07/24/2018 9:54 am REASON FOR STUDY: Hemoptysis hemoptysis COMPARISON: None. TECHNIQUE: CT scan of the chest performed using helical scanning technique with dynamic intravenous contrast injection. Images reviewed with lung, soft tissue and bone windows. Reconstructed coronal and sagittal MPR images reviewed. Additional 3 dimensional post-processing performed to develop Maximal Intensity Projection images (LA P). All images stored on PACS. All CT scanners at this facility use dose modulation, iterative reconstruction, and/or weight based d osing when appropriate to reduce radiation dose to as low as reasonably achievable (ALARA). [facility]: Dose Right [facility]: CareDose [facility]: Dose Right [facility]: Teradose 4D [facility]: Redux CONTRAST TYPE AND DOSE: contrast/concentration: Isovue 350.00 mg/ml; Total Contrast Delivered: 82.0 ml; Total Saline Delivered: 91.0 ml Contrast bolus optimized for the pulmonary arteries. Not diagnostic for the aorta. RENAL FUNCTION: Not available. RADIATION DOSE: CT Rad equipment meets quality standard of care and radiation dose reduction techniq ues were employed. CTDIvol: 9.9 - 21.2 mGy. DLP: 853 mGy-cm. . LIMITATIONS: None. FINDINGS: LUNGS AND PLEURA: Diffuse patchy airspace disease with associated ground-glass attenuation . Relative sparing of the lung apices. No effusions. AORTA AND GREAT VESSELS: No aneurysm. Contrast bolus not optimized for the aorta. HEART: No pericardial effusion. No significant coronary artery calcifications. PULMONARY ARTERIES: No emboli visualized in the main pulmonary arteries or the segmental branches. HILAR AND MEDIASTINAL STRUCTURES: No identified masses or abnormal nodes. HARDWARE: None in the chest. UPPER ABDOMEN: No significant findings. Limited exam. THYROID AND OTHER SOFT TISSUES: No masses. No adenopathy. BONES: No acute or significant finding. 3D MIPS: Confirm above findings. OTHER: No other significant finding. IMPRESSION: 1. No PE. 2. Diffuse airspace disease most consistent with atypical pneumonia or hypersensitivity. COMMENT: Quality ID # [id number]: Final reports with documentation of one or more dose reduction techniques (e.g., Automated exposure control, adjustment of the mA and/or kV according to patient size, use of iterative reconstruction technique) TECHNICAL DOCUMENTATION: JOB ID: [id number]- All Rights Reserved Reading location - IP/workstation name: [email or web address]
--- NOTE | 2018-07-24 11:48 | EKG REPORT ---
SEVERITY:- BORDERLINE ECG - SINUS RHYTHM PROBABLE LEFT ATRIAL ABNORMALITY : Confirmed by: Niko Dyer 24-Jul-2018 11:47:14
[2018-07-24] MEDS ORDERED: LEVOFLOXACIN 750 MG/D5W RTU 750 MG/150 ML RTUPB IV ONE (11:58)
== END 2018-07-24 14:40 | disposition home or self-care (01) ==
LOC: ER 08:21
DX: J18.9 Pneumonia, unspecified organism (principal); M79.10 Myalgia, unspecified site; F17.200 Nicotine dependence, unspecified, uncomplicated; I50.9 Heart failure, unspecified; I11.0 Hypertensive heart disease with heart failure; E11.9 Type 2 diabetes mellitus without complications; Z86.73 Personal history of transient ischemic attack (TIA), and cerebral infarction without residual deficits
CPT/HCPCS: 93005; 99284; 96365; 96366; 36415; 85025; 85610; 80048; 84484; 71045; 71275; 93010; J1956

== ENCOUNTER → 2018-08-02 | Outpatient (CLI) | payer OTHER ==
--- NOTE | 2018-08-02 09:16 | RADIOLOGY REPORT (SQ) ---
EXAM DESCRIPTION: CHEST PA/LATERAL COMPLETED DATE/TIME: 08/02/2018 8:55 am REASON FOR STUDY: HX OF PNEUMONIA, Z87.01 COMPARISON: 07/24/2018 EXAM PARAMETERS: NUMBER OF VIEWS: two views TECHNIQUE: Digital Frontal and Lateral radiographic views of the chest acquired. RADIATION DOSE: NA LIMITATIONS: none FINDINGS: LUNGS AND PLEURA: Perihilar airspace opacities with more focal opacity lateral to the righ t heart border. MEDIASTINUM AND HILAR STRUCTURES: Stable. HEART AND VASCULAR STRUCTURES: Cardiomegaly. Prominent central vessels. BONES: No acute findings. HARDWARE: None in the chest. OTHER: No other significant finding. IMPRESSION: Perihilar airspace disease could represent volume overload or atypical pneumonia. Clini eliza correlation is needed. TECHNICAL DOCUMENTATION: JOB ID: [id number] [employer]- All Rights Reserved Reading location - IP/workstation name: [email or web address]
== END ==
LOC: CCC 08:16
DX: Z09 Encounter for follow-up examination after completed treatment for conditions other than malignant neoplasm (principal); Z87.01 Personal history of pneumonia (recurrent)
CPT/HCPCS: 71046

== ENCOUNTER 2018-08-03 08:25 | Emergency (ER) | payer SELFPAY ==
[2018-08-03] MEDS ORDERED: ACETAMINOPHEN 325 MG TABLET PO ONE (09:25)
[2018-08-03] MEDS ORDERED: LIDOCAINE 5% (700 MG) TRANSDERMAL ADH..PATCH TP ONE (09:25)
--- NOTE | 2018-08-03 09:30 | ER Document Report ---
HPI - HPI Patient complains to provider of: Low back pain Time Seen by Provider: 08/03/18 08:53 Onset: Other - 3-4 days Onset/Duration: Persistent Quality of pain: Achy Pain Level: 5 Context: Patient presents complaining of left lower back pain for the past several days. Patient denies any fever or urinary symptoms. Patient states that he was recently treated for pneumonia and was concerned that his back pain may be attributed to that. Patient states pain is worse with movement and twisting. Associated Symptoms: Other - Left lower back pain. denies: Fever, Vomiting Exacerbated by: Movement Relieved by: Denies Similar symptoms previously: No Recently seen / treated by doctor: Yes - ROS ROS below otherwise negative: Yes Systems Reviewed and Negative: Yes All other systems reviewed and negative - CONSTITUTIONAL Constitutional: DENIES: Fever, Chills - CARDIOVASCULAR Cardiovascular: DENIES: Chest pain - RESPIRATORY Respiratory: DENIES: Trouble Breathing - GASTROINTESTINAL Gastrointestinal: DENIES: Abdominal Pain, Patient vomiting - URINARY Urinary: DENIES: Dysuria, Urgency, Frequency - MUSCULOSKELETAL Musculoskeletal: REPORTS: Back Pain - DERM Skin Color: Normal Skin Problems: None Past Medical History - General Information source: Patient - Social History Smoking Status: Never Smoker Chew tobacco use (# tins/day): No Smoking Education Provided: Yes Drug Abuse: None Occupation: None Family History: CAD, CVA, DM, Hyperlipidemia, Hypertension Patient has suicidal ideation: No Patient has homicidal ideation: No - Past Medical History Cardiac Medical History: Reports: Hx Congestive Heart Failure, Hx Hypertension Pulmonary Medical History: Reports: Hx Bronchitis, Hx Pneumonia - 07/23/17 Neurological Medical History: Reports: Hx Cerebrovascular Accident, Hx Migraine Endocrine Medical History: Reports: Hx Diabetes Mellitus Type 2 Renal/ Medical History: Denies: Hx Peritoneal Dialysis Musculoskeletal Medical History: Reports Hx Musculoskeletal Trauma Traumatic Medical History: Reports: Hx Fractures Past Surgical History: Reports: Hx Orthopedic Surgery - 27 screws/plate in Rgt FA; Rgt Knee; Bone graft - Immunizations Hx Diphtheria, Pertussis, Tetanus Vaccination: Yes Vertical Provider Document - CONSTITUTIONAL Agree With Documented VS: Yes Exam Limitations: No Limitations General Appearance: WD/WN, No Apparent Distress Notes: PHYSICAL EXAMINATION: GENERAL: Well-appearing, well-nourished and in no acute distress. HEAD: Atraumatic, normocephalic. EYES: sclera clear, anicteric, conjunctiva are normal. ENT: nares patent, Moist mucous membranes. NECK: Normal range of motion, supple no lymphadenopathy LUNGS: respirations unlabored HEART: Regular rate and rhythm without murmurs EXTREMITIES: Normal range of motion, no pitting or edema. No cyanosis. Gait normal, pt ambulates without difficulty BACK: Left lower lumbar paraspinal tenderness, no midline tenderness, no deformities or step-offs. No CVA tenderness. NEUROLOGICAL: Cranial nerves grossly intact. Normal speech, normal gait. No saddle anesthesia. PSYCH: Normal mood, normal affect. SKIN: Warm, Dry, normal turgor, no rashes or lesions noted. - INFECTION CONTROL TRAVEL OUTSIDE OF THE [place] IN LAST 30 DAYS: No Course - Re-evaluation Re-evalutation: 08/03/18 09:26 Patient has left lower lumbar paraspinal tenderness, no concern for any worsening pneumonia at this time. Patient's pain is just above the left buttock. the patient presents with low back pain without signs of spinal cord compression, cauda equina syndrome, infection, aneurysm, or other serious etiology. The patient is neurologically intact. Given the extremely risk of these diagnoses further testing and evaluation for these possibilities does not appear to be indicated at this time. Patient has been instructed to return if the symptoms worsen or change in any way. - Vital Signs Vital signs: Temp Pulse Resp BP Pulse Ox 97.7 F 71 20 132/95 H 96 08/03/18 08:32 08/03/18 08:32 08/03/18 08:32 08/03/18 08:32 08/03/18 08:32 Discharge - Discharge Clinical Impression: Low back pain Qualifiers: Chronicity: unspecified Back pain laterality: left Sciatica presence: without sciatica Qualified Code(s): M54.5 - Low back pain Condition: Stable Disposition: HOME, SELF-CARE Instructions: Ice Packs ([facility]), Low Back Pain ([facility]), Oral Narcotic Medication ( [facility]) Additional Instructions: Return immediately for any new or worsening symptoms Followup with your primary care provider, call tomorrow to make a followup appointment Prescriptions: Oxycodone HCl/Acetaminophen [Percocet 5-325 mg Tablet] 1 tab PO ASDIR PRN #15 tablet PRN Reason: Forms: Smoking Cessation Education Referrals: [facility] [NO LOCAL MD] - Follow up as needed
[2018-08-03 09:41] VITALS: BP 130/85
== END 2018-08-03 09:40 | disposition home or self-care (01) ==
LOC: ER 08:25
DX: M54.5 Low back pain (principal); I10 Essential (primary) hypertension; E11.9 Type 2 diabetes mellitus without complications; Z87.01 Personal history of pneumonia (recurrent)
CPT/HCPCS: 99283

== ENCOUNTER 2018-08-23 16:43 | Emergency (ER) | payer SELFPAY ==
--- NOTE | 2018-08-23 17:16 | ER Document Report ---
ED Medical Screen (RME) - General Chief Complaint: Rectal Pain Stated Complaint: RECTAL PAIN Time Seen by Provider: 08/23/18 16:56 TRAVEL OUTSIDE OF THE [place] IN LAST 30 DAYS: No - Related Data Allergies/Adverse Reactions: No Known Allergies Allergy (Verified 08/23/18 16:45) Past Medical History - Social History Frequency of alcohol use: Occasional Drug Abuse: None - Past Medical History Cardiac Medical History: Reports: Hx Congestive Heart Failure, Hx Hypertension Pulmonary Medical History: Reports: Hx Bronchitis, Hx Pneumonia - 07/23/17 Neurological Medical History: Reports: Hx Cerebrovascular Accident, Hx Migraine Endocrine Medical History: Reports: Hx Diabetes Mellitus Type 2 Renal/ Medical History: Denies: Hx Peritoneal Dialysis Musculoskeltal Medical History: Reports Hx Musculoskeletal Trauma Traumatic Medical History: Reports: Hx Fractures Past Surgical History: Reports: Hx Orthopedic Surgery - 27 screws/plate in Rgt FA; Rgt Knee; Bone graft - Immunizations Hx Diphtheria, Pertussis, Tetanus Vaccination: Yes History of Influenza Vaccine for 05/2017 - 10/2017 Season: No Physical Exam - Vital signs Vitals: Pulse Resp BP Pulse Ox 89 18 134/89 H 97 08/23/18 16:49 08/23/18 16:49 08/23/18 16:49 08/23/18 16:49 Course - Re-evaluation Re-evalutation: 08/23/18 17:16 40-year-old man that presents for evaluation of rectal pain and persistent bleeding over the last year and a half. Has a known history of an internal hemorrhoid in the past. I have seen and evaluated this patient in rapid medical screening exam, there will require reexamination and further assessment with possible diagnostics and disposition determination by secondary provider. - Vital Signs Vital signs: Temp Pulse Resp BP Pulse Ox 89 18 134/89 H 97 08/23/18 16:49 08/23/18 16:49 08/23/18 16:49 08/23/18 16:49 Doctor's Discharge - Discharge Referrals: JERRI FU MD [Primary Care Provider] - Follow up as needed
[2018-08-23 18:02] LABS: ABSOLUTE EOSINOPHILS # (AUTO) 0.1 10^3/uL (0.0-0.6); ABSOLUTE LYMPHOCYTES (AUTO) 2.4 10^3/uL (0.5-4.7); ABSOLUTE MONOCYTES (AUTO) 0.4 10^3/uL (0.1-1.4); ABSOLUTE NEUT (AUTO) 3.1 10^3/uL (1.7-8.2); BASOPHILS % (AUTO) 0.6 % (0-2); EOSINOPHILS % (AUTO) 1.5 % (0-6); HEMATOCRIT 42.3 % (37.9-51.0); HEMOGLOBIN 14.5 g/dL (13.5-17.0); LYMPHOCYTES % (AUTO) 39.1 % (13-45); MEAN CORPUSCULAR HGB CONC 34.2 g/dL (32.0-36.0); MEAN CORPUSCULAR VOLUME 88 fl (80-97); MONOCYTES % (AUTO) 6.8 % (3-13); PLATELET COUNT 230 10^3/uL (150-450); RED BLOOD COUNT 4.83 10^6/uL (4.35-5.55); TOTAL CELLS COUNTED % (AUTO) 100 %; WHITE BLOOD COUNT 6.1 10^3/uL (4.0-10.5)
--- NOTE | 2018-08-23 18:05 | RADIOLOGY REPORT (SQ) ---
EXAM DESCRIPTION: KUB/ABDOMEN (SINGLE VIEW) COMPLETED DATE/TIME: 08/23/2018 5:52 pm REASON FOR STUDY: stool burden COMPARISON: None. NUMBER OF VIEWS: One view. TECHNIQUE: Supine radiographic image of the abdomen acquired. LIMITATIONS: None. FINDINGS: BOWEL GAS PATTERN: Normal bowel gas pattern. No dilated loops. Moderate burden of stool i n the left hemicolon. CALCIFICATIONS: No suspicious calcifications. SOFT TISSUES: No gross mass or suggestion of organomegaly. HARDWARE: None in the abdomen. BONES: No acute fracture. No worrisome bone lesions. OTHER: No other significant finding. IMPRESSION: Nonobstructive pattern of bowel gas with scattered gas and stool present to the distal c olon. Moderate burden of stool in the left hemicolon. No free air in the abdomen on supine radiogra phs. TECHNICAL DOCUMENTATION: JOB ID: [id number] [employer]- All Rights Reserved Reading location - IP/workstation name: [email or web address]
[2018-08-23 18:13] LABS: ALANINE AMINOTRANSFERASE 35 U/L (21-72); ALBUMIN 4.2 g/dL (3.5-5.0); ALKALINE PHOSPHATASE 72 U/L (38-126); ANION GAP 10 (5-19); ASPARTATE AMINO TRANSFERASE 30 U/L (17-59); BILIRUBIN,DIRECT 0.3 mg/dL (0.0-0.4); BILIRUBIN,TOTAL 0.7 mg/dL (0.2-1.3); BLOOD UREA NITROGEN 16 mg/dL (7-20); CALCIUM 9.4 mg/dL (8.4-10.2); CARBON DIOXIDE 22 mmol/L (22-30); CHLORIDE 110 mmol/L (98-107); GLUCOSE 132 mg/dL (75-110); POTASSIUM 4.3 mmol/L (3.6-5.0); SODIUM 142.4 mmol/L (137-145); TOTAL PROTEIN 7.2 g/dL (6.3-8.2)
[2018-08-23] MEDS ORDERED: LIDOCAINE 2% JELLY 5 ML TUBE TOP ONE (19:28)
--- NOTE | 2018-08-23 19:29 | ER Document Report ---
ED General - General Chief Complaint: Rectal Pain Stated Complaint: RECTAL PAIN Time Seen by Provider: 08/23/18 16:56 Notes: Patient is a 48-year-old male with a past medical history of diabetes, hypertension, morbid obesity who presents with complaints of "being torn up". Patient reports a long-standing history of straining with bowel movements, frequent periods of where he has blood when he wipes. States that he drank Epson salts today and then had "an explosion of diarrhea". Thereafter the patient reports that he has had burning, stinging, constant pain to his anus and rectum. He reports that he has tried witch shyanne wipes without any improvement. Nothing worsens his symptoms. He has not seen his primary doctor regarding today's concerns. He reports only a very small amount of blood on the tissue when he wiped today. Denies any syncope, focal abdominal pain, nausea or vomiting. Does not take any form of anticoagulation. TRAVEL OUTSIDE OF THE [place] IN LAST 30 DAYS: No - Related Data Allergies/Adverse Reactions: No Known Allergies Allergy (Verified 08/23/18 16:45) Past Medical History - General Information source: Patient - Social History Smoking Status: Current Every Day Smoker Frequency of alcohol use: Occasional Drug Abuse: None Family History: CAD, CVA, DM, Hyperlipidemia, Hypertension Patient has suicidal ideation: No Patient has homicidal ideation: No - Past Medical History Cardiac Medical History: Reports: Hx Congestive Heart Failure, Hx Hypertension Pulmonary Medical History: Reports: Hx Bronchitis, Hx Pneumonia - 07/23/17 Neurological Medical History: Reports: Hx Cerebrovascular Accident, Hx Migraine Endocrine Medical History: Reports: Hx Diabetes Mellitus Type 2 Renal/ Medical History: Denies: Hx Peritoneal Dialysis Musculoskeletal Medical History: Reports Hx Musculoskeletal Trauma Traumatic Medical History: Reports: Hx Fractures Past Surgical History: Reports: Hx Orthopedic Surgery - 27 screws/plate in Rgt FA; Rgt Knee; Bone graft - Immunizations Hx Diphtheria, Pertussis, Tetanus Vaccination: Yes Review of Systems - Review of Systems Notes: Constitutional: Negative for fever. HENT: Negative for sore throat. Eyes: Negative for visual changes. Cardiovascular: Negative for chest pain. Respiratory: Negative for shortness of breath. Gastrointestinal: Negative for abdominal pain, vomiting or diarrhea. Positive for constipation and rectal pain Genitourinary: Negative for dysuria. Musculoskeletal: Negative for back pain. Skin: Negative for rash. Neurological: Negative for headaches, weakness or numbness. 10 point ROS negative except as marked above and in HPI. Physical Exam - Vital signs Vitals: Pulse Resp BP Pulse Ox 89 18 134/89 H 97 08/23/18 16:49 08/23/18 16:49 08/23/18 16:49 08/23/18 16:49 Interpretation: Normal Notes: PHYSICAL EXAMINATION: GENERAL: Well-appearing, well-nourished and in no acute distress. HEAD: Atraumatic, normocephalic. EYES: Pupils equal round and reactive to light, extraocular movements intact, sclera anicteric, conjunctiva are normal. ENT: nares patent, oropharynx clear without exudates. Moist mucous membranes. NECK: Normal range of motion, supple without lymphadenopathy LUNGS: Breath sounds clear to auscultation bilaterally and equal. No wheezes rales or rhonchi. HEART: Regular rate and rhythm without murmurs ABDOMEN: Soft, nontender, normoactive bowel sounds. No guarding, no rebound. No masses appreciated. Rectal: Small nonthrombosed external hemorrhoid on exam. No active rectal bleeding. No masses. EXTREMITIES: Normal range of motion, no pitting or edema. No cyanosis. NEUROLOGICAL: No focal neurological deficits. Moves all extremities spontaneously and on command. PSYCH: Normal mood, normal affect. SKIN: Warm, Dry, normal turgor, no rashes or lesions noted. Course - Re-evaluation Re-evalutation: 08/23/18 19:27 Presentation is most consistent with uncomplicated external hemorrhoids. No evidence of anemia on CBC. Patient's abdominal exam is otherwise benign. I do not suspect a more significant lower GI bleed or upper GI bleed based on history, vitals, normal hemoglobin, and patient's overall well appearance. At this time will discharge with return precautions and follow-up recommendations. Verbal discharge instructions given a the bedside and opportunity for questions given. Medication warnings reviewed. Patient is in agreement with this plan and has verbalized understanding of return precautions and the need for primary care follow-up in the next 24-72 hours. - Vital Signs Vital signs: Temp Pulse Resp BP Pulse Ox 98.5 F 75 20 136/81 H 98 08/23/18 19:40 08/23/18 19:40 08/23/18 19:40 08/23/18 19:40 08/23/18 19:40 - Laboratory Result Diagrams: 08/23/18 17:28 08/23/18 17:28 Laboratory results interpreted by me: 08/23/18 17:28 Chloride 110 H Glucose 132 H Discharge - Discharge Clinical Impression: External hemorrhoids Constipation Qualifiers: Constipation type: unspecified constipation type Qualified Code(s): K59.00 - Constipation, unspecified Condition: Good Disposition: HOME, SELF-CARE Additional Instructions: You were seen today for hemorrhoids. The best treatment is to avoid straining while having bowel moments, avoiding heavy lifting, or any other activity that causes you to bear down forcefully. You need to make sure that your stools are soft and should start taking Docusate 200mg in the morning and at night until your stools are very soft and you can have a bowel movement without any straining. You can also soak in warm water, apply topical hemorrhoid cream that can be purchased at the store, and take tylenol or ibuprofen per box instructions as needed for pain. Please follow-up with your primary doctor. Return if you begin to have persistent bleeding, worsening pain, abdominal pain, fever >101, or any other symptoms that are concerning to you. Referrals: JERRI FU MD [[facility]] - Follow up as needed
[2018-08-23 19:51] VITALS: BP 136/81
== END 2018-08-23 19:40 | disposition home or self-care (01) ==
LOC: ER 16:43
DX: K64.4 Residual hemorrhoidal skin tags (principal); K59.00 Constipation, unspecified; E11.9 Type 2 diabetes mellitus without complications; F17.200 Nicotine dependence, unspecified, uncomplicated; I11.0 Hypertensive heart disease with heart failure; I50.9 Heart failure, unspecified; Z86.73 Personal history of transient ischemic attack (TIA), and cerebral infarction without residual deficits
CPT/HCPCS: 36415; 74018; 80053; 85025; 99283

== ENCOUNTER 2018-09-11 23:29 | Emergency (ER) | payer SELFPAY | END 2018-09-12 00:12 | disposition left against medical advice (07) | LOC: ER 23:29 | DX: Z53.21 Procedure and treatment not carried out due to patient leaving prior to being seen by health care provider (principal); K08.89 Other specified disorders of teeth and supporting structures ==

== ENCOUNTER → 2019-02-13 | Outpatient (CLI) | payer OTHER ==
[2019-02-13 14:48] LABS: HEMATOCRIT 42.7 % (37.9-51.0); HEMOGLOBIN 14.4 g/dL (13.5-17.0); MEAN CORPUSCULAR HEMOGLOBIN 28.8 pg (27.0-33.4); MEAN CORPUSCULAR HGB CONC 33.7 g/dL (32.0-36.0); MEAN CORPUSCULAR VOLUME 85 fl (80-97); PLATELET COUNT 188 10^3/uL (150-450); RED CELL DISTRIBUTION WIDTH 15.2 % (11.5-14.0); WHITE BLOOD COUNT 5.3 10^3/uL (4.0-10.5)
[2019-02-13 14:50] LABS: ABSOLUTE LYMPHOCYTES# (MANUAL) 2.5 10^3/uL (0.5-4.7); ABSOLUTE MONOCYTES # (MANUAL) 0.1 10^3/uL (0.1-1.4); BASOPHILS % (MANUAL) 0 % (0-2); EOSINOPHILS % (MANUAL) 2 % (0-6); LYMPHOCYTES % (MANUAL) 48 % (13-45); MONOCYTES % (MANUAL) 2 % (3-13); SEGMENTED NEUTROPHILS % (MAN) 48 % (42-78); TOTAL CELLS COUNTED 100
[2019-02-13 14:51] LABS: ANISOCYTOSIS SLIGHT; BURR CELLS SLIGHT; OVALOCYTES SLIGHT; PLATELET COMMENT ADEQUATE; POIKILOCYTOSIS SLIGHT; POLYCHROMASIA SLIGHT
== END ==
LOC: OD 13:25
DX: K62.5 Hemorrhage of anus and rectum (principal)
CPT/HCPCS: 36415; 83036; 85025

== ENCOUNTER 2020-05-27 17:28 | Emergency (ER) | payer OTHER, MEDICAID ==
[2020-05-27 18:03] VITALS: BP 150/84
--- NOTE | 2020-05-27 18:16 | ER Document Report ---
ED General - General Chief Complaint: Cough Stated Complaint: COUGH Notes: Patient is a 50-year-old -[place] male who presents here in police custody from a local inmate facility being sent by the local medical staff for COVID-19 testing. Patient states he is unsure why he was sent. He states he has no symptoms. He denies any chest pain or cough. Denies any shortness of breath. Denies any fever, chills or night sweats. Denies any nausea, vomiting or diarrhea. Denies any rashes. He denies any suspicious exposures "as far as I am concerned". He continues to say he is unsure why they sent him for COVID- 19 testing. He states that he just had a negative test a couple weeks ago. He has no complaints at this time. Reports asymptomatic. TRAVEL OUTSIDE OF THE [place] IN LAST 30 DAYS: No - Related Data Allergies/Adverse Reactions: No Known Allergies Allergy (Verified 08/23/18 16:45) Past Medical History - Social History Smoking Status: Unknown if Ever Smoked Family History: CAD, CVA, DM, Hyperlipidemia, Hypertension - Past Medical History Cardiac Medical History: Reports: Hx Congestive Heart Failure, Hx Hypertension Pulmonary Medical History: Reports: Hx Bronchitis, Hx Pneumonia - 07/23/17 Neurological Medical History: Reports: Hx Cerebrovascular Accident, Hx Migraine Endocrine Medical History: Reports: Hx Diabetes Mellitus Type 2 Renal/ Medical History: Denies: Hx Peritoneal Dialysis Musculoskeletal Medical History: Reports Hx Musculoskeletal Trauma Traumatic Medical History: Reports: Hx Fractures Past Surgical History: Reports: Hx Orthopedic Surgery - 27 screws/plate in Rgt FA; Rgt Knee; Bone graft - Immunizations Hx Diphtheria, Pertussis, Tetanus Vaccination: Yes Review of Systems - Review of Systems Constitutional: denies: Recent illness EENT: denies: Throat pain Cardiovascular: denies: Syncope Respiratory: denies: Sputum Gastrointestinal: denies: Poor fluid intake Genitourinary: denies: Pain Male Genitourinary: denies: Testicular pain Musculoskeletal: denies: Deformity Skin: denies: Change in hair/nails Hematologic/Lymphatic: denies: Easy bruising Neurological/Psychological: denies: Homicidal ideation Physical Exam - Vital signs Vitals: Temp Pulse Resp BP Pulse Ox 98.0 F 82 16 150/84 H 98 05/27/20 18:02 05/27/20 18:02 05/27/20 18:02 05/27/20 18:02 05/27/20 18:02 - General General appearance: Appears well, Alert In distress: None - Respiratory Respiratory status: No respiratory distress Chest status: Nontender Breath sounds: Normal Chest palpation: Normal - Cardiovascular Rhythm: Regular Heart sounds: Normal auscultation - Neurological Neuro grossly intact: Yes Cognition: Normal Orientation: AAOx4 - Psychological Associated symptoms: Normal affect, Normal mood - Skin Skin Temperature: Warm Skin Moisture: Dry Skin Color: Normal Course - Re-evaluation Re-evalutation: 05/27/20 18:15 Patient COVID swab. No further testing ordered given patient's reported asymptomatic nature. He will be discharged into the custody of the officer at bedside for return to his facility. Discussed with him the importance of quarantine until test results return. Advised they return here or any ER immediately with any new, persistent or worsening symptoms. He will follow-up with facility medical staff. - Vital Signs Vital signs: Temp Pulse Resp BP Pulse Ox 98.0 F 82 16 150/84 H 98 05/27/20 18:02 05/27/20 18:02 05/27/20 18:02 05/27/20 18:02 05/27/20 18:02 Discharge - Discharge Clinical Impression: Person under investigation for COVID-19 Condition: Stable Disposition: HOME, SELF-CARE Instructions: COVID-19 Guidance for Persons Under Investigation Additional Instructions: Please remain in quarantine until you receive a negative result. Please follow- up with the facility medical staff for further care and management. Please return here or any ER immediately with any new, persistent or worsening symptoms.
== END 2020-05-27 18:31 | disposition home or self-care (01) ==
LOC: ER 17:28
DX: Z03.818 Encounter for observation for suspected exposure to other biological agents ruled out (principal)
CPT/HCPCS: 99283; 87635; C9803

== ENCOUNTER → 2020-05-27 | Outpatient (CLI) | payer OTHER ==
[2020-05-27 16:04] LABS: ABSOLUTE EOSINOPHILS # (AUTO) 0.1 10^3/uL (0.0-0.6); ABSOLUTE LYMPHOCYTES (AUTO) 2.1 10^3/uL (0.5-4.7); ABSOLUTE MONOCYTES (AUTO) 0.5 10^3/uL (0.1-1.4); ABSOLUTE NEUT (AUTO) 2.9 10^3/uL (1.7-8.2); BASOPHILS % (AUTO) 0.7 % (0-2); EOSINOPHILS % (AUTO) 2.3 % (0-6); HEMATOCRIT 41.3 % (37.9-51.0); HEMOGLOBIN 14.2 g/dL (13.5-17.0); LYMPHOCYTES % (AUTO) 36.6 % (13-45); MEAN CORPUSCULAR HEMOGLOBIN 30.4 pg (27.0-33.4); MEAN CORPUSCULAR HGB CONC 34.5 g/dL (32.0-36.0); MEAN CORPUSCULAR VOLUME 88 fl (80-97); MONOCYTES % (AUTO) 9.2 % (3-13); PLATELET COUNT 276 10^3/uL (150-450); RED BLOOD COUNT 4.68 10^6/uL (4.35-5.55); SEGMENTED NEUTROPHILS % (AUTO) 51.2 % (42-78); TOTAL CELLS COUNTED % (AUTO) 100 %; WHITE BLOOD COUNT 5.7 10^3/uL (4.0-10.5)
[2020-05-27 16:29] LABS: ALBUMIN 4.1 g/dL (3.5-5.0); ALKALINE PHOSPHATASE 66 U/L (38-126); ANION GAP 12 (5-19); ASPARTATE AMINO TRANSFERASE 23 U/L (17-59); BILIRUBIN,DIRECT 0.3 mg/dL (0.0-0.4); BLOOD UREA NITROGEN 9 mg/dL (7-20); CALCIUM 9.5 mg/dL (8.4-10.2); CARBON DIOXIDE 24 mmol/L (22-30); CHLORIDE 104 mmol/L (98-107); GLUCOSE 106 mg/dL (75-110); POTASSIUM 4.6 mmol/L (3.6-5.0); TOTAL PROTEIN 6.7 g/dL (6.3-8.2)
== END ==
LOC: OD 14:47
DX: Z00.00 Encounter for general adult medical examination without abnormal findings (principal)
CPT/HCPCS: 36415; 80053; 83880; 85025